=== PATIENT | male | born 1965 | race African-American/Black ===

== ENCOUNTER 2025-03-17 10:07 | Outpatient (REF) | payer OTHER, SELFPAY ==
--- NOTE | 2025-03-17 10:12 | EMG_ITS ---
Chief complaint: pain in wrists Referred by: KIKE Ortega Procedure done: NCS and EMG of bilateral upper extremities Bilateral median and ulnar motor studies were performed, median and ulnar mixed sensory studies were performed and radial sensory studies were performed. EMG was performed. Findings: Median motor distal latencies were moderately prolonged. Similar pattern was noted with median mixed sensory study especially on the left with slowing of conduction velocity. Ulnar study revealed mild slowing across elbow. Impression: 1. 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
--- OUTSIDE RECORDS SUMMARY | 2025-03-17 12:14 | XMS_ITS | Continuity of Care Document ---
Author Organization [facility], Main Office Address [address] [place] [address] Care Team Providers Care Roll Up Machine Operator Name Role Phone SUNNY AUGUSTIN Space Systems Operations Manager [phone] MISHEL PLATA Back End Engineer JOVITA DURBIN, AMANDA Sleep Medicine JOURDAN PRUITT Primary Care Provider Unavailabl e Assessment No assessment recorded. Plan of Treatment Reminders Order Date Submit Date Provider Last Modified By Organization Details Last Modified Time Details Appointments None recorded. Lab cobalamin and folate panel, serum 2024 025 RAHAT [facility] (Centralized Electronic Ordering - All Locations), Patient Can Go To The Location Of Their Choice, 06:07:45 CMP, serum or plasma 2024 025 RAHAT [facility], [address], [place], [address], 20:59:04 TSH + free T4, serum 2024 025 RAHAT [facility] (Centralized Electronic Ordering - All Locations), Patient Can Go To The Location Of Their Choice, [id number] 06:07:44 lipid panel, serum 2024 025 RAHAT [facility], [address], [place], [address], 20:59:05 CBC w/ auto diff 2024 025 RAHAT [facility] (Centralized Electronic Ordering - All Locations), Patient Can Go To The Location Of Their Choice, [id number] 06:07:45 HbA1c (hemoglobin A1c), blood 2024 RAHAT [facility], [address], [address], [place], [address], 20:59:06 PSA, serum or plasma 2024 RAHAT [facility], [address], [place], [address], 20:59:05 Referral benefits director referral - bilateral hearing loss. 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 thumb and index affected. 2024 emili [facility] (Imaging), [address] [place], [address], 14:29:40 Surgeries None recorded. Imaging None recorded. Medication Orders sildenafil 100 mg tablet 2024 DICKENS [id number], [address] [place], [address], 10:15:00 Patient TargetsNo targets recorded. Patient Instructions Encounter Date Encounter Id Patient Instructions Last Modified By Organization Details Last Modified Time 02/13/2025 [id number] sleep apnea: car e instructions Not available 02/13/2025 10:14:58 bunion removal: before your surgery Not available 02/13/2025 10:14:58 bunions: care instructions Not available 02/13/2025 10:14:58 Reason for Referral Back End Engineer Referral for Buni on bilateral bunions Referring Physician: Jourdan Pruitt [facility], Encounter Date: 02/13/2025 Transactional Attorney Referral for Hea ring difficulty bilateral hearing loss. last seen in 2019 Referring Physician: Jourdan Pruitt [facility], Encounter Date: 02/13/2025 Results Created Date Observation Date Name Description Value Unit Range Abnormal Flag Note LastModifiedBy Organization Detail LastModifiedTime 02/14/2002/14/2025 TSH+F REE T4 TSH 1.360 uIU/m L 0.450- 4.500 normal Not Available [facility] ([facility]) [address] [place], [address], 02/14/2025 06:07:44 02/14/2002/14/2025 TSH+F REE T4 T4,free(dire ct) 1.18 NG/dL 0.82-1 .77 normal Not Available [facility] ([facility]) [address] [place], [address], 02/14/2025 06:07:44 02/14/2002/13/2025 CBC WITH DIFFE RENTI AL/PL ATELE T WBC 4.7 x10e3 /uL 3.4-10 .8 normal Not Available [facility] ([facility]) [address] [place], [address], 02/14/2025 06:07:45 02/14/2002/13/2025 CBC WITH DIFFE RENTI AL/PL ATELE T RBC 4.56 x10e6 /uL 4.14-5 .80 normal Not Available [facility] ([facility]) [address] [place], [address], 02/14/2025 06:07:45 02/14/2002/13/2025 CBC WITH DIFFE RENTI AL/PL ATELE T hemoglobin 13.7 g/dL 13.0-1 7.7 normal Not Available [facility] ([facility]) [address] [place], [address], 02/14/2025 06:07:45 02/14/2002/13/2025 CBC WITH DIFFE RENTI AL/PL ATELE T hematocrit 42.1 % 37.5-5 1.0 normal Not Available [facility] ([facility]) [address] [place], [address], 02/14/2025 06:07:45 02/14/2002/13/2025 CBC WITH DIFFE RENTI AL/PL ATELE T MCV 92 fL 79-97 normal Not Available [facility] ([facility]) [address] [place], [address], 02/14/2025 06:07:45 02/14/2002/13/2025 CBC WITH DIFFE RENTI AL/PL ATELE T MCH 30.0 pg 26.6-3 3.0 normal Not Available [facility] ([facility]) [address] [place], [address], 02/14/2025 06:07:45 02/14/2002/13/2025 CBC WITH DIFFE RENTI AL/PL ATELE T MCHC 32.5 g/dL 31.5-3 5.7 normal Not Available [facility] ([facility]) [address] [place], [address], 02/14/2025 06:07:45 02/14/2002/13/2025 CBC WITH DIFFE RENTI AL/PL ATELE T RDW 12.5 % 11.6-1 5.4 Not Available [facility] ([facility]) [address] [place], [address], 02/14/2025 06:07:45 02/14/2002/13/2025 CBC WITH DIFFE RENTI AL/PL ATELE T platelets 189 x10e3 /uL 150-45 0 normal Not Available [facility] ([facility]) [address] [facility], [place], [address], 02/14/2025 06:07:45 02/14/2002/13/2025 CBC WITH DIFFE RENTI AL/PL ATELE T neutrophils 55 % not estab. normal Not Available [facility] ([facility]) [address] [facility], [place], [address], 02/14/2025 06:07:45 02/14/2002/13/2025 CBC WITH DIFFE RENTI AL/PL ATELE T lymphs 34 % not estab. normal Not Available [facility] ([facility]) [address] [facility], [place], [address], 02/14/2025 06:07:45 02/14/2002/13/2025 CBC WITH DIFFE RENTI AL/PL ATELE T monocytes 5 % not estab. normal Not Available [facility] ([facility]) [address] [place], [address], 02/14/2025 06:07:45 02/14/2002/13/2025 CBC WITH DIFFE RENTI AL/PL ATELE T eos 5 % not estab. normal Not Available [facility] ([facility]) [address] [facility], [place], [address], 02/14/2025 06:07:45 02/14/2002/13/2025 CBC WITH DIFFE RENTI AL/PL ATELE T basos 1 % not estab. normal Not Available [facility] ([facility]) [address] [facility], [place], [address], 02/14/2025 06:07:45 02/14/2002/13/2025 CBC WITH DIFFE RENTI AL/PL ATELE T immature cells FIRE OFFICER Not Available [facility] ([facility]) [address] [facility], [place], [address], 02/14/2025 06:07:45 02/14/2002/13/2025 CBC WITH DIFFE RENTI AL/PL ATELE T neutrophils (absolute) 2.5 x10e3 /uL 1.4-7. 0 normal Not Available [facility] ([facility]) [address] [place], [address], 02/14/2025 06:07:45 02/14/2002/13/2025 CBC WITH DIFFE RENTI AL/PL ATELE T lymphs (absolute) 1.6 x10e3 /uL 0.7-3. 1 normal Not Available [facility] ([facility]) [address] [place], [address], 02/14/2025 06:07:45 02/14/2002/13/2025 CBC WITH DIFFE RENTI AL/PL ATELE T monocytes(ab solute) 0.3 x10e3 /uL 0.1-0. 9 normal Not Available [facility] ([facility]) [address] [place], [address], 02/14/2025 06:07:45 02/14/2002/13/2025 CBC WITH DIFFE RENTI AL/PL ATELE T eos (absolute) 0.2 x10e3 /uL 0.0-0. 4 normal Not Available [facility] ([facility]) [address] [place], [address], 02/14/2025 06:07:45 02/14/2002/13/2025 CBC WITH DIFFE RENTI AL/PL ATELE T baso (absolute) 0.0 x10e3 /uL 0.0-0. 2 normal Not Available [facility] ([facility]) [address] [place], [address], 02/14/2025 06:07:45 02/14/2002/13/2025 CBC WITH DIFFE RENTI AL/PL ATELE T immature granulocytes 0 % not estab. Not Available [facility] ([facility]) [address] [facility], [place], [address], 02/14/2025 06:07:45 02/14/2002/13/2025 CBC WITH DIFFE RENTI AL/PL ATELE T immature grans (abs) 0.0 x10e3 /uL 0.0-0. 1 Not Available [facility] ([facility]) [address] [facility], [place], [address], 02/14/2025 06:07:45 02/14/2002/13/2025 CBC WITH DIFFE RENTI AL/PL ATELE T NRBC FIRE OFFICER Not Available [facility] ([facility]) [address] [facility], [place], [address], 02/14/2025 06:07:45 02/14/2002/13/2025 CBC WITH DIFFE RENTI AL/PL ATELE T hematology comments: FIRE OFFICER Not Available [facility] ([facility]) [address] [facility], [place], [address], 02/14/2025 06:07:45 02/14/2002/14/2025 VITAM IN B12 AND FOLAT E vitamin B12 624 pg/mL 232-12 45 normal Not Available [facility] ([facility]) [address] [facility], [place], [address], 02/14/2025 06:07:45 02/14/2002/14/2025 VITAM IN B12 AND FOLAT E folate (folic acid), serum >20.0 NG/mL >3.0 A serum folat e sukhi ntrat ion of less than 3.1 ng/mL is consi dered to repre sent clini daniel defic iency . Not Available [facility] ([facility]) [address] [facility], [place], [address], 02/14/2025 06:07:45 02/14/2002/14/2025 CMP14 (REFL EX HGB A1C) glucose 102 mg/dL 70-99 above high normal Not Available [facility] ([facility]) [address] [place], [address], 02/20/2025 20:59:03 02/14/2002/14/2025 CMP14 (REFL EX HGB A1C) BUN 13 mg/dL 6-24 normal Not Available [facility] ([facility]) [address] [place], [address], 02/20/2025 20:59:03 02/14/2002/14/2025 CMP14 (REFL EX HGB A1C) creatinine 1.11 mg/dL 0.76-1 .27 normal Not Available [facility] ([facility]) [address] [place], [address], 02/20/2025 20:59:03 02/14/2002/14/2025 CMP14 (REFL EX HGB A1C) eGFR 77 mL/mi n/1.7 3 >59 normal Not Available [facility] ([facility]) [address] [place], [address], 02/20/2025 20:59:03 02/14/2002/14/2025 CMP14 (REFL EX HGB A1C) BUN/creatini ne ratio 12 9-20 normal Not Available [facility] ([facility]) [address] [place], [address], 02/20/2025 20:59:03 02/14/2002/14/2025 CMP14 (REFL EX HGB A1C) sodium 139 mmol/ L 134-14 4 normal Not Available [facility] ([facility]) [address] [place], [address], 02/20/2025 20:59:03 02/14/2002/14/2025 CMP14 (REFL EX HGB A1C) potassium 3.8 mmol/ L 3.5-5. 2 normal Not Available [facility] ([facility]) [address] [place], [address], 02/20/2025 20:59:03 02/14/2002/14/2025 CMP14 (REFL EX HGB A1C) chloride 103 mmol/ L 96-106 normal Not Available [facility] ([facility]) [address] [place], [address], 02/20/2025 20:59:03 02/14/2002/14/2025 CMP14 (REFL EX HGB A1C) carbon dioxide, total 20 mmol/ L 20-29 normal Not Available [facility] ([facility]) [address] [place], [address], 02/20/2025 20:59:03 02/14/2002/14/2025 CMP14 (REFL EX HGB A1C) calcium 9.1 mg/dL 8.7-10 .2 normal Not Available [facility] ([facility]) [address] [place], [address], 02/20/2025 20:59:03 02/14/2002/14/2025 CMP14 (REFL EX HGB A1C) protein, total 7.2 g/dL 6.0-8. 5 normal Not Available [facility] ([facility]) [address] [place], [address], 02/20/2025 20:59:03 02/14/2002/14/2025 CMP14 (REFL EX HGB A1C) albumin 4.4 g/dL 3.8-4. 9 normal Not Available [facility] ([facility]) [address] [place], [address], 02/20/2025 20:59:03 02/14/2002/14/2025 CMP14 (REFL EX HGB A1C) globulin, total 2.8 g/dL 1.5-4. 5 Not Available [facility] ([facility]) [address] [place], [address], 02/20/2025 20:59:03 02/14/2002/14/2025 CMP14 (REFL EX HGB A1C) bilirubin, total 0.4 mg/dL 0.0-1. 2 normal Not Available [facility] ([facility]) [address] [place], [address], 02/20/2025 20:59:03 02/14/2002/14/2025 CMP14 (REFL EX HGB A1C) alkaline phosphatase 44 IU/L 47-123 below low normal Not Available [facility] ([facility]) [address] [place], [address], 02/20/2025 20:59:03 02/14/2002/14/2025 CMP14 (REFL EX HGB A1C) AST (SGOT) 23 IU/L 0-40 normal Not Available [facility] ([facility]) [address] [place], [address], 02/20/2025 20:59:03 02/14/2002/14/2025 CMP14 (REFL EX HGB A1C) ALT (SGPT) 20 IU/L 0-44 normal Not Available [facility] ([facility]) [address] [place], [address], 02/20/2025 20:59:03 02/14/2002/14/2025 LIPID PANEL cholesterol, total 211 mg/dL 100-19 9 above high normal Not Available [facility] ([facility]) [address] [place], [address], 02/20/2025 20:59:05 02/14/2002/14/2025 LIPID PANEL triglyceride s 66 mg/dL 0-149 normal Not Available [facility] ([facility]) [address] [place], [address], 02/20/2025 20:59:05 02/14/2002/14/2025 LIPID PANEL HDL cholesterol 66 mg/dL >39 normal Not Available [facility] ([facility]) [address] [facility], [place], [address], 02/20/2025 20:59:05 02/14/2002/14/2025 LIPID PANEL VLDL cholesterol daniel 12 mg/dL 5-40 Not Available [facility] ([facility]) [address] [facility], [place], [address], 02/20/2025 20:59:05 02/14/2002/14/2025 LIPID PANEL LDL chol calc ([facility]) 133 mg/dL 0-99 above high normal Not Available [facility] ([facility]) [address] [facility], [place], [address], 02/20/2025 20:59:05 02/14/2002/14/2025 LIPID PANEL LDL calc comment: FIRE OFFICER Not Available [facility] ([facility]) [address] [facility], [place], [address], 02/20/2025 20:59:05 02/14/2002/20/2025 PROST ATE SPECI FIC ANTIG EN prostate specific antigen 0.515 NG/mL This PSA resul t was deter mined using the Beckm an chemi lumin ometr ic immun oassa y and value s obtai dion canno t be evalu ated inter brown eably with diffe rent assay metho ds or kits. This PSA resul t alone canno t be inter prete d as absol sarahy evide nce of the prese nce or absen ce of disea se. Refer ence Range : >=40y : 97% of contr ols are <4.0. PSA level s have been repor maksim to corre late with prost ate size. Value s >4.0 are commo n in patie nts with prost atic hyper plasi a. Not Available [facility] [address], [place], [address], 02/20/2025 20:59:05 02/14/20 25 02/13/2025 HEMOG LOBIN A1C hemoglobin A1C 5.9 % 4.8-5. 6 above high normal Predi abete s: 5.7 - 6.4 Diabe any: >6.4 Glyce yanely contr ol for adult s with diabe any: <7.0 Not Available [facility] ([facility]) [address] [facility], [place], [address], 02/20/2025 20:59:06 Result Notes None recorded. 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 Not Available [facility] 2 13:16:02 Insomnia 231738014 Active Not Available [facility] 2 13:16:02 Carpal tunnel syndrome 70608010 Active Not Available [facility] 2 13:16:02 Acute sinusiti s 89547061 Completed 200811/11/2013 RECORDED 08/15/19 09 9:27AM BY AURELIA GOLDEN MA, ANNOTATI ON/ADDEN DUM Not Available [facility] 4 14:40:47 Cough 05662833 Completed 200811/11/2013 RECORDED 08/15/19 09 9:27AM BY AURELIA GOLDEN MA, ANNOTATI ON/ADDEN DUM Not Available [facility] 4 14:40:48 Acute sinusiti s 48983236 Completed 200812/01/2013 RECORDED 08/15/19 09 9:27AM BY AURELIA GOLDEN MA, EMILIEATI ON/ADDEN DUM Not Available [facility] 4 06:48:47 Cough 40419190 Completed 200812/01/2013 RECORDED 08/15/19 09 9:27AM BY AURELIA GOLDEN MA, EMILIEATI ON/ADDEN DUM Not Available [facility] 4 06:48:47 General examinat ion of patient Completed 200911/11/2013 RECORDED 01/07/20 10 12:06PM BY CONNIE TELLES, ANNOTATI ON/ADDEN DUM Not Available [facility] 4 14:40:48 Shoulder joint pain 421268619 Completed 200911/11/2013 RECORDED 01/07/20 10 12:06PM BY CONNIE TELLES, ANNOTATI ON/ADDEN DUM Not Available [facility] 4 14:40:48 Sprains and strains of joints and adjacent muscles Completed 200911/11/2013 RECORDED 01/07/20 10 12:06PM BY CONNIE TELLES, ANNOTATI ON/ADDEN DUM Not Available [facility] 4 14:40:48 General examinat ion of patient Completed 200912/01/2013 RECORDED 01/07/20 10 12:06PM BY CONNIE TELLES, ANNOTATI ON/ADDEN DUM Not Available [facility] 4 06:48:47 Shoulder joint pain 304873926 Completed 200912/01/2013 RECORDED 01/07/20 10 12:06PM BY CONNIE TELLES, ANNOTATI ON/ADDEN DUM Not Available [facility] 4 06:48:47 Sprains and strains of joints and adjacent muscles Completed 200912/01/2013 RECORDED 01/07/20 10 12:06PM BY CONNIE TELLES, ANNOTATI ON/ADDEN DUM Not Available [facility] 4 06:48:47 Administ ration of bacteria l and viral vaccine Completed 200911/11/2013 RECORDED 01/14/20 10 10:36AM BY CONNIE BAH, OFFICE VISIT Not Available [facility] 4 14:40:48 Administ ration of bacteria l and viral vaccine Completed 200912/01/2013 RECORDED 01/14/20 10 10:36AM BY CONNIE BAH, OFFICE VISIT Not Available [facility] 4 06:48:47 Hyperlip idemia 72353333 Completed 201211/11/2013 RECORDED 05/13/19 13 8:32AM BY AURELIA GOLDEN MA, ANNOTATI ON/ADDEN DUM Megan neumann MA [facility] 7 15:18:54 Digestiv e symptom 620526011 Completed 201211/11/2013 RECORDED 07/02/19 13 10:47AM BY STEVEN ESCALANTE MA, ANNOTATI ON/ADDEN DUM Not Available [facility] 4 14:40:48 Screenin g for malignan t neoplasm of colon Completed 201211/11/2013 RECORDED 07/02/19 13 10:47AM BY STEVEN ESCALANTE MA, ANNOTATI ON/ADDEN DUM Not Available [facility] 4 14:40:48 Digestiv e symptom 994273884 Completed 201212/01/2013 RECORDED 07/02/19 13 10:47AM BY STEVEN ESCALANTE MA, ANNOTATI ON/ADDEN DUM Not Available [facility] 4 06:48:47 Screenin g for malignan t neoplasm of colon Completed 201212/01/2013 RECORDED 07/02/19 13 10:47AM BY STEVEN ESCALANTE MA, ANNOTATI ON/ADDEN DUM Not Available [facility] 4 06:48:47 Patient status finding [id number] Completed 201211/11/2013 RECORDED 11/30/19 13 3:10PM BY STEVEN ESCALANTE MA, ANNOTATI ON/ADDEN DUM Not Available [facility] 4 14:40:48 Adult health examinat ion Completed 201211/11/2013 RECORDED 11/30/19 13 3:10PM BY STEVEN ESCALANTE MA, ANNOTATI ON/ADDEN DUM Not Available [facility] 4 14:40:48 Onychomy cosis due to dermatop hyte 482494008 Completed 201211/11/2013 RECORDED 11/30/19 13 3:10PM BY STEVEN ESCALANTE MA, ANNOTATI ON/ADDEN DUM Not Available [facility] 4 14:40:48 Patient status finding [id number] Completed 201212/01/2013 RECORDED 11/30/19 13 3:10PM BY STEVEN ESCALANTE MA, ANNOTATI ON/ADDEN DUM Not Available [facility] 4 06:48:47 Adult health examinat ion Completed 201212/01/2013 RECORDED 11/30/19 13 3:10PM BY STEVEN ESCALANTE MA, ANNOTATI ON/ADDEN DUM Not Available [facility] 4 06:48:47 Onychomy cosis due to dermatop hyte 405850742 Completed 201212/01/2013 RECORDED 11/30/19 13 3:10PM BY STEVEN ESCALANTE MA, ANNOTATI ON/ADDEN DUM Not Available [facility] 4 06:48:47 Cellulit is 732992356 Completed 201308/18/2014 RECORDED 08/14/19 14 8:46AM BY RAJNI VINES MA, OFFICE VISIT Robin neumann [facility] 5 20:10:44 Backache 858367763 Completed 201310/12/2014 RECORDED 08/14/19 14 8:50AM BY KIT ULRICH PA-C, OFFICE VISIT CONNIE Gerard [facility] 5 13:35:04 Tobacco dependen ce syndrome 33572218 Active 2013 Not Available [facility] 2 13:16:02 Urinary tract obstruct ion 3676600 Active 2013 Not Available [facility] 2 13:16:02 Benign prostati c hyperpla heaven 267644214 Active 2013 Not Available [facility] 2 13:16:02 Lower urinary tract symptoms 970553359 Completed 201310/12/2014 IMPRESSI ON: MAY BE MILD AND FACTOR; RECORDED 08/14/19 14 8:46AM BY RAJNI VINES MA, OFFICE VISIT CONNIE Gerard [facility] 5 13:35:04 Impotenc e of organic origin Active 2013 Not Available [facility] 2 13:16:02 Hyperlip idemia 24825433 Active 2013 Not Available [facility] 2 13:16:02 Stephanie palm 41670014 Completed 201308/18/2014 RECORDED 08/14/19 14 8:46AM BY RAJNI VINES MA, OFFICE VISIT Robin neumann [facility] 5 20:10:44 Patient status finding [id number] Completed 201308/18/2014 RECORDED 08/14/19 14 8:46AM BY RAJNI VINES MA, OFFICE VISIT Robin neumann, [facility] 5 20:10:44 Major depressi ve disorder 365450861 Active 2020 Not Available [facility] 2 13:16:02 COVID-19 545065691 Completed 202001/27/2021 Removal Reason: Problem marked historic al by user [email or web address] from the COVID-19 watch flag Josue Sánchez, [facility] [address] [address], [place], [address] , [facility] 1 10:22:30 Foot pain 10279243 Active 2021 Josue Sánchez, [facility] [address] [address], [place], [address] , [facility] 2 10:48:15 Primary erectile dysfunct ion 245294185 Active 2021 Aaron Banks MA null, [facility] 2 14:09:30 Impaired fasting glycemia 916251724 Active 2021 Josue Sánchez, [facility] [address] [facility] [address], [place], [address] , [facility] 2 10:49:54 Fatigue 35384505 Active 2021 Josue Sánchez [facility] [address], [place], [address] , [facility] 2 10:49:54 Carpal tunnel syndrome 93661382 Active 2021 Josue Sánchez, [facility] [address] [facility] [address], [place], [address] , [facility] 2 10:49:54 Erectile dysfunct ion 287349546 Active 2021 Josue Sánchez, [facility] [address] [place] [address], [place], [address] , [facility] 2 10:57:44 Lumbar radiculo vincent 728016988 Active 2021 Josue Sánchez, [facility] [address] [place] [address], [place], [address] , [facility] 2 10:58:27 Elevated blood-pr essure reading without diagnosi s of hyperten otto 979459361 Active 2021 Josue Sánchez, [facility] [address] [place] [address], [place], [address] , [facility] 2 11:04:53 Apnea 1123137 Active 2021 Josue Sánchez, [facility] [address] [address], [place], [address] , [facility] 2 11:48:00 Paresthe heaven 31820146 Active 2022 Josue Sánchez, [facility] [address] [address], [place], [address] , [facility] 3 09:49:39 Snoring 31009743 Active 2022 Josue Sánchez [facility] [address] [address], [place], [address] , [facility] 3 09:49:39 Neck pain 31442177 Active 2022 Josue Sánchez, [facility] [address] [facility] [address], [place], [address] , [facility] 3 09:49:39 Thoracic back pain 325948108 Active 2022 Josue Sánchez [facility] [address] [facility] [address], [place], [address] , [facility] 3 09:56:22 Obstruct jomar sleep apnea syndrome 94199069 Active 2022 Josue Sánchez [facility] [address] [facility] [address], [place], [address] , [facility] 3 13:17:01 Problem Notes None recorded. Procedures Surgical History Date Name Laterality Status Provider Name and Address Organization Details Recorded Time 7 Unlisted procedure shoulder completed Megan Landry [facility] 01/08/2017 13:05:05 1 Colonoscopy completed [facility] 02/05/2020 14:02:58 1 biopsy completed Maryshady Shin [facility] 02/05/2020 13:33:46 3 Vasectomy completed Aurelia farooq [facility] 05/18/2020 15:46:24 arthroscopy of shoulder completed Aurelia farooq [facility] 02/08/2023 09:21:32 Imaging Results None recorded. Procedure Notes None recorded. Medical Equipment None Reported. Allergies Allergen ID Allergen Name Allergen Category Reaction Reaction Severity Criticality Documentation Date Start Date Code Code System Note Provider Name and Address Organization Details Recorded Time 29102 No known allergy (situatio n) Not available Not available Not available Not available 11/04/20132008 32471 6003 SNOMED COMME NT: RECOR DED 08/14 9:27A M BY BA JAUREGUI MA, OFFIC E VISIT ; Not Available [facility] 4 13:27:10 No known drug allergies Medications Name Sig Start Date Stop Date Status Note LastModified by Organization Details LastModified Time Prescript ion - Prior Authoriza tion Request active Not Available Not Available Not Available cyclobenz aprine 10 mg tablet Take 1 tablet 3 times a day by oral route as directed for 10 days. 02/08 completed Not Available Not Available Not Available trazodone 50 mg tablet Take 1 tablet as needed by oral route at bedtime for 90 days. active Not Available Not Available No t Available azithromy katja 250 mg tablet TAKE 2 TABLETS (500 MG) BY ORAL ROUTE ONCE DAILY FOR 1 DAY THEN 1 TABLET (250 MG) BY ORAL ROUTE ONCE DAILY FOR 4 DAYS 01/27 completed Not Available Not Available Not Available citalopra m 10 mg tablet Take 3 tablets every day by oral route for 90 days. 12/22 completed Not Available Not Available Not Available Viagra 50 mg tablet 1 TABLET BY MOUTHY NEEDED 12/22 completed Not Available Not Available Not Available penicilli n V potassium 500 mg tablet 01/05 completed Not Available Not Available Not Available morphine ER 30 mg tablet,ex tended release 01/08 completed Not Available Not Available Not Available sulfameth oxazole 800 mg-trimet hoprim 160 mg tablet TWO TIMES DAILY 12/09 completed RECORDED 06/28/19 14 10:21AM BY AARON ROJAS MD, MEDICATI ON AUTO-DUSTIN CTIVATIO N; Not Available Not Available Not Available sildenafi l 100 mg tablet TAKE 1 TABLET BY MOUTH EVERY DAY NEEDED 2024 active PA APPROVED Not Available Not Available Not Available citalopra m 20 mg tablet Take 1 tablet every day by oral route for 30 days. 12/22 completed Not Available Not Available Not Available cephalexi n 500 mg capsule 01/17 completed Not Available Not Available Not Available prednison e 50 mg tablet DAILY active Not Available Not Available Not Available gabapenti n 300 mg capsule TAKE 1 CAPSULE BY MOUTH TWICE DAILY 02/02 completed Not Available Not Available Not Available naproxen 500 mg tablet TAKE 1 TABLET BY MOUTH TWICE A DAY active Not Available Not Available No t Available diazepam 5 mg tablet 01/08 completed Not Available Not Available Not Available amoxicill in 875 mg-potass ium clavulana te 125 mg tablet TWO TIMES DAILY 06/01 completed RECORDED 08/15/19 09 9:27AM BY BRIANA Frias NP, MEDICATI ON AUTO-DUSTIN CTIVATIO N; Not Available Not Available Not Available oxycodone 5 mg tablet 01/08 completed Not Available Not Available Not Available codeine-g uaifenesi n oral syrup Q 4 HOURS PRN 05/30 completed RECORDED 08/15/19 09 9:27AM BY BRIANA Frias NP, MEDICATI ON AUTO-DUSTIN CTIVATIO N; Not Available Not Available Not Available tadalafil 20 mg tablet Take by oral route for 10 days. active Not Available Not Available No t Available Vicodin Q 6HR/PRN 01/02 completed RECORDED 03/01/20 07 11:00AM BY FLASH CARNEY, HERSONATI ON AUTO-DUSTIN CTIVATIO N; Not Available Not Available Not Available Fish Oil QD 06/02 completed RECORDED 06/02/19 12 1:01PM BY EVERETTE PEREZ ON/ANGELY BERUMEN; Not Available Not Available Not Available sodium fluoride 1.1 % dental paste BRUSH TWICE DAILY. NO EATING/D RINKING FOR [address] A SMALL AMOUNT OF PASTE ON FLOSS AND FLOSS BACK TEETH 02/08 completed Not Available Not Available Not Available Vitals Date Recorded Body height Body mass index (BMI) Body weight Heart rate Oxygen saturation Body temperature Systolic And Diastolic Provider Name and Address Organization Details Last Updated DateTime 5 172.72 cm 38 kg/m2 202801. 09 g 66 /min 97 % 97.4 [degF] 108/60 mm[Hg] Aurelia hannon [facility] 5 09:58:31 Social History Question Answer Notes LastModified by Organizat ion Details LastModified Time Tobacco Smoking Status [facility] 15:41:51 Do You Have An Advance Directive? Yes [facility] Information not available 02/02/2022 Is Blood Transfusion Acceptable In An Emergency? Yes [email or web address] Information not available 12/23/2015 What Is Your Level Of Caffeine Consumption? Occasional Coffee And Mushroom Coffee Information not available 02/13/2025 How Much Tobacco Do You Chew? None Information not available 12/23/2015 What Type Of Diet Are You Following? REGULAR Information not available 10/12/2014 Which Illicit Or Recreational Drugs Have You Used? Marijuana Occasional Information not available 02/08/2023 Live Alone Or With Others? With Others (Kaci) And 1 Child Information not available 02/02/2022 Do You Take Precautions To Prevent Distracted Driving? Yes Information not available 12/23/2015 How Often Do You Need To Have Someone Help You When You Read Instructions, Pamphlets, Or Other Written Material From Your Doctor Or Pharmacy? Never Information not available 12/23/2015 Have You Served In The ? No [email or web address] Information not available 01/11/2018 Have You Or Anyone In Your Household Had Any Of The Following Symptoms In The Last 14 Days: Sore Throat, Cough, Chills, Body Aches For Unknown Reasons, Shortness Of Breath For Unknown Reasons, Loss Of Smell, Loss Of Taste, Fever At Or Greater Than 100 Degrees Fahrenheit? No [email or web address] Information not available 01/27/2020 Are You Or Anyone In Your Household A Health Care Provider Or Emergency Responder? No [email or web address] Information not available 01/27/2020 To The Best Of Your Knowledge Have You Been In Close Proximity To Any Individual Who Tested Positive For COVID-19? Yes Information not available 02/02/2022 Have You Recently Traveled To A COVID-19 High Risk Area Or Gathering In The Last 10 Days? No Information not available 05/18/2020 What Was The Date Of Your Most Recent Tobacco Screening? 02/13/2025 Information not available 02/13/2025 How Many Children Do You Have? 2 Information not available 10/12/2014 Do You Use Protection During Sex? No Information not available 12/23/2015 Do You Use Your Seat Belt Or Car Seat Routinely? Yes [email or web address] Information not available 01/27/2021 Seat Belts Used Routinely Yes Information not available 02/02/2022 Are You Sexually Active? Yes Kaci Information not available 02/08/2023 Smoke Alarm In Home Yes Information not available 02/02/2022 Do You Have Smoke And Carbon Monoxide Detectors In Your Home? Yes [email or web address] Information not available 01/27/2021 Are You Passively Exposed To Smoke? Yes Information not available 02/02/2022 How Much Tobacco Do You Smoke? No Information not available 05/18/2020 Do You Use Sunscreen Routinely? No Information not available 12/23/2015 Sex: Unknown Functional Status Question Answer Note LastModified by Organizat ion Details LastModified Time Do you use any illicit or recreational drugs? No Information not available 02/13/2025 Do you or have you ever used any other forms of tobacco or nicotine? No Information not available 02/02/2022 What is your level of alcohol consumption? Occasional Information not available 02/08/2023 Do you or have you ever used smokeless tobacco? Never used smokeless tobacco [email or web address] Information not available 01/27/2020 Are you currently employed? Yes Information not available 10/12/2014 Are you able to walk independently without assistance or assistive devices? [email or web address] Information not available 02/02/2022 Are you able to care for yourself independently? Yes Information not available 10/12/2014 What is your occupation? [employer] Information not available 02/02/2022 Do you or have you ever used e-cigarettes or vape? Never used electronic cigarettes Information not available 02/02/2022 What is your exercise level? Occasional Information not available 01/27/2021 Mental Status None recorded. Family History Relationship Description Onset Age of this Age Resolved Age Notes LastModified by Organization Details LastModified Time Mother Well adult 66 Not available 02/02/2022 10:35:07 Father Alcoholism 65/ unknow n Not available 02/02/2022 10:35:07 Father Harmful pattern of use of alcohol Not available 2020 09:49:14 Unspecified Relation Harmful pattern of use of alcohol [email or web address] Not available 2021 10:35:07 Unspecified Relation Alzheimer's disease Not available 2020 09:49:15 Unspecified Relation Substance abuse Not available 2020 09:49:15 Unspecified Relation Multiple sclerosis matern al great uncle [email or web address] Not available 02/13/2025 10:01:13 Paternal Uncle Alzheimer's disease Not available 2020 09:49:15 Paternal Uncle Dementia [email or web address] Not available 01/28/20 09:49:15 Maternal Aunt Multiple sclerosis [email or web address] s Not available 02/13/2025 10:01:13 Medical History Condition Response Coronary Artery Disease N Other Y Gout N Kidney Stones N Blood Diseases N Hyperthyroidism N Breast Cancer N mrsa exposure N Hypothyroidism N Lung Disease N COPD N Depression Y Developmental or Behavioral Disorders N Defects or Inherited Disease N Breast Problem N Anesthesia Complications N Headaches/Migraines N Anxiety Disorder N Varicose Veins N Muscle, Joint, or Bone Problems Y Obesity Y Vision or Eye Problems N Arthritis Y Head Injury/Concussion N Infertility N Polyps N Mental Disorder N Congenital Anomalies N Acid Reflux (GERD) N Cancer N Stroke N ADHD N Endometriosis N High Cholesterol Y Liver Disease N Fibromyalgia N Headaches N Kidney Disease N Heart Problems N Ear or Hearing Problems Y Hospitalizations N Thyroid Problems N GI Problems N Developmental Delay N Acne Y Skin Problems N Eating Disorder Y Anemia N Constipation N Bladder Problems N Mental Illness N Ovarian Cancer N Diabetes N Bedwetting N Blood Transfusions N Seizures/Epilepsy N Heart Problems/Murmur N Tuberculosis N AIDS/HIV N Congestive Heart Failure (CHF) N Eczema N Diverticulitis N Abuse/Domestic Violence N Asthma N Allergies Y Reflux/GERD N Hepatitis N Heart Disease N Pulmonary Embolism N Hypertension N Chicken Pox N Autism Spectrum Disorder (ASD) N Osteoporosis N Immunizations Vaccine Type Date Status Note Provider Name and Address Organization Details Recorded Time Influenza, split virus, trivalent, PF 02/14/20 25 completed CONNIE Sunshine, [facility] 02/13/2025 12:40:54 COVID-19, mRNA, LNP-S, PF, 30 mcg/0.3 mL dose 08/15/19 21 completed Nae William null, [facility] 05/04/2021 15:57:22 COVID-19, mRNA, LNP-S, PF, 30 mcg/0.3 mL dose 09/05/19 21 completed Nae William null, [facility] 05/04/2021 15:57:22 COVID-19, mRNA, LNP-S, PF, 30 mcg/0.3 mL dose 04/26/19 22 completed CONNIE Morocho, [facility] 05/17/2022 10:02:18 COVID-19, mRNA, LNP-S, bivalent, PF, 30 mcg/0.3 mL dose 02/21/20 22 completed CONNIE Morocho, [facility] 05/17/2022 10:11:26 Influenza, MDCK, quadrivalent, PF 02/21/20 22 completed CONNIE Morocho, [facility] 05/17/2022 10:11:26 Influenza, split virus, quadrivalent, PF 01/09/20 17 cancelled patient objection Not Available [email or web address] 05/10/2019 02:22:11 Tdap 01/27/20 20 completed RODNEY Iverson [address] [place] [address], [phone], [facility] 01/27/2020 16:04:11 Influenza, split virus, quadrivalent, PF 02/09/20 23 completed RODNEY Iverson [address] [place] [address], [phone], [facility] 02/08/2023 10:12:56 Td (adult), 2 Lf tetanus toxoid, preservative free, adsorbed 12/18/19 01 completed Nae neumann, [facility] 05/04/2021 15:57:22 Tdap 01/14/20 10 completed Nae neumann CONNIE [facility] 05/04/2021 15:57:22 Past Encounters Encounter ID Performer Location Encounter Start Date Encounter Closed Date Diagnosis/Indication Diagnosis SNOMED-CT Code Diagnosis ICD10 Code Diagnosis IMO Codes Diagnosis Note [id number] Bro Dela Cruz MD Main Office [address] [facility] CONNIE SCHAEFER [id number] 02/13/2025 09:42:33 02/13/2025 10:37:18 Adult health examination 072791319 Z00.00 HM UTD, cologuard done in 2024- negative, will check PSA. Hyperlipidemia 59567767 E78.5 will recheck. Benign pro static hyperplasia 420725381 N40.1 Impaired f asting glycemia 658917122 R73.01 Obstructiv e sleep apnea syndrome 33544177 G47.33 sleep study confirmed but he has not tried CPAP, does not think he would wear mask. encouraged to consider alternate mask options and try CPAP Erectile dysfunction 860 929799 F52.21 refill provided. Needs infl uenza immunization 482628315 Z23 19 YEARS AND OLDER ONLY Bunion 777945188 M21.61 1 M21.[id number] Plata and was advised he needed prosthetic s, Dr Plata does not provide service. Will refer to Dr. Lares for bilateral bunions. 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 work-notic ed difficulty grasping heavy objects-in office +phalen test, R>L-will further evaluate with EMG for suspicion of carpal tunnel Hearing difficulty 28717 0000 H91.93 [id number] saw audiology in 2019>was told he had bilateral hearing loss-pt would like to get re-examine d for possible hearing aids Family his tory of Multiple sclerosis 113522011 Z82.0 [id number] Health Concerns Section Related Observation LastModified by Organization Detai ls LastModified Time None Recorded Concern Status LastModified by Organization Details LastModified Time None Recorded Payers Encounter Date Sequence Insurance Name Policy Number Policy Padilla Covered Member ID Padilla Member ID Guarantor Name 02/13/2025 1 MAYUR [id number] Niles Abraham [id number] Niles Abraham Notes Date Note Type Note Provider Name and Address Organization Details Recorded Time 02/13/2025 text/html ROS as noted in the HPI Niles is a 59yr old M who presents for his annual PE. Has some work related stress- work, home life, college. He does have sleep apnea per sleep study, will not use cpap so he cancelled it. Not sleeping great, takes trazodone on nights he really needs a good night's sleep. Walking 3.5-5miles per day. eats well during the day, taking supplements- AG1 powder, mushroom coffee, testosterone supplement, considering sea hong and ashwaghanda. Overeats at night- snacking- boredom. KIKE CRAIG [address] [address], [place], [phone], [facility] 02/13/2025 11:10:55
--- OUTSIDE RECORDS SUMMARY | 2025-03-17 12:15 | XMS_ITS | Data Portability ---
Author Organization [facility], Main Office Address [address] 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 Plan of Treatment Reminders Order Date Submit Date Provider Last Modified By Organization Details Last Modified Time Details Appointments None recor ded. Lab cobal peralta and folat e panel , serum 2024 RAHAT [facility] (Centralized Electronic Ordering - All Locations), Patient Can Go To The Location Of Their Choice, 06:07:45 CMP, serum or plasm a 2024 025 RAHAT [facility], [address], [address], [place], [place], [address], 20:59:04 TSH + free T4, serum 2024 025 RAHAT [facility] (Centralized Electronic Ordering - All Locations), Patient Can Go To The Location Of Their Choice, 06:07:44 lipid panel , serum 2024 025 RAHAT [facility], [address], [address], [place], [address], 20:59:05 CBC w/ auto diff 2024 025 RAHAT [facility] (Centralized Electronic Ordering - All Locations), Patient Can Go To The Location Of Their Choice, [id number] 5 06:07:45 HbA1c (hemo globi n A1c), blood 2024 025 RAHAT [facility], [address], [address], [place], [address], 5 20:59:06 PSA, serum or plasm a 2024 025 [facility]AT [facility], [address], [address], [place], [address], 20:59:05 CMP, serum or plasm a 2023 RAHAT [facility], [address], [address], [place], [address], 16:19:11 lipid panel , serum 2023 RAHAT [facility], [address], [address], [place], [address], 4 16:19:12 CBC w/ auto diff 2023 024 RAHAT [facility], [address], [address], [place], [address], 4 16:19:10 TSH, serum or plasm a 2023 RAHAT [facility], [address], [address], [place], [address], 4 16:19:13 testo stero ne, free + total , serum 2023 RAHAT [facility], [address], [address], [place], [address], 4 16:19:13 corti perry, am, serum 2023 024 RAHAT [facility], [address], [address], [place], [place], [address], 4 16:19:15 HbA1c (hemo globi n A1c), blood 2023 024 RAHAT [facility], [address], [address], [place], [place], [address], 4 16:19:15 nonin vasiv e color ectal cance r DNA + occul t blood scree antolin, QL, stool 2023 024 [place] [facility], [address], [address], [place], [address], 5 09:55:34 PSA, serum or plasm a 2023 024 RAHAT [facility], [address], [address], [place], [address], 4 16:19:14 CMP, serum or plasm a 2022 023 RAHAT [facility], [address], [address], [place], [address], 3 16:31:13 lipid panel , serum 2022 023 RAHAT [facility], [address], [address], [place], [address], 3 16:31:14 CBC w/ auto diff 2022 023 RA[facility]AT [facility], [address], [address], [place], [address], 3 16:03:49 TSH, serum or plasm a 2022 023 RA[facility]AT [facility], [address], [address], [place], [address], 3 16:35:35 HbA1c (hemo globi n A1c), blood 2022 023 RAHAT [facility], [address], [address], [place], [address], 3 17:06:49 PSA, serum or plasm a 2022 023 [facility], [address], [address], [place], [address], 3 16:35:34 folat e, serum 2022 023 [facility]AT [facility], [address], [address], [place], [place], [address], 3 15:16:42 vitam in B12, serum 2022 023 [facility], [address], [address], [place], [address], 3 15:16:41 ESR (eryt hrocy te sedim entat ion rate) , blood 2022 023 [facility]AT [facility], [address], [address], [place], [address], 3 15:03:26 Referral audio logis t refer ral - bilat eral heari ng loss. last seen in 2018 025 [email or web address] [facility], [address], [place], [address], 5 08:25:52 podia trist refer ral - bilat eral bunio ns 2024 025 [email or web address] José Miguel Lares MD, [address], [place], [address], 5 10:37:19 Procedures nerve condu ction study /EMG, upper extre mity (PROC ) - bilat eral wrist s. thumb and index affec maksim. 2024 025 emili [facility] (Imaging), [address] [place], [address], 5 14:29:40 Surgeries None recor ded. Imaging home sleep study - snori ng, large neck BMI> 35, STOP BANG score = 6 2022 023 [email or web address] [facility] ([facility]eds & [facility]), [address], [facility], [place], [address], 3 11:37:42 XR, cervi daniel spine - numbn ess from neck to shoul mattie, rule out arthr itis 2022 023 [facility], [address] [place], [address], 3 11:58:31 Medication Orders silde nafil 100 mg table t 2024 025 [place] [id number], [address] [place], [address], 5 10:15:00 tadal afil 20 mg table t 2023 024 RAHAT Not available 4 10:36:05 trazo done 50 mg table t 2023 024 RAHAT Not available 4 10:34:01 cyclo benza hunter 10 mg table t 2022 023 [email or web address] os Not available 09:12:08 Patient TargetsNo targets recorded. Patient Instructions Encounter Date Encounter Id Patient Instructions Last Modified By Organization Details Last Modified Time 08/24/2022 [id number] healthy upper back: exercises jthabet Not available 08/24/2022 09:59:49 To call or retur n for worsening or concerns jthabet Not available 08/24/2022 09:55:22 02/08/2023 [id number] dash diet: care instructions jthabet Not available 02/08/2023 09:34:20 low sodium diet (2,000 milligram): care instructions jthabet Not available 02/08/2023 09:34:19 high blood pressure: care instructions jthabet Not available 02/08/2023 09:34:19 insomnia: care instructions jthabet Not available 02/08/2023 09:34:19 sleep hygiene information jthabet Not available 02/08/2023 09:34:19 Colorectal Cance r Screening: Care Instructions jthabet Not available 02/08/2023 09:34:19 To call or retur n for worsening or concerns jthabet Not available 02/08/2023 09:33:08 02/13/2024 [id number] insomnia: care instructions jthabet Not available 02/13/2024 10:31:36 sleep hygiene information jthabet Not available 02/13/2024 10:31:37 dash diet: care instructions jthabet Not available 02/13/2024 10:31:36 low sodium diet (2,000 milligram): care instructions jthabet Not available 02/13/2024 10:31:36 high blood pressure: care instructions jthabet Not available 02/13/2024 10:31:37 sleep apnea: car e instructions jthabet Not available 02/13/2024 10:32:40 Colorectal Cance r Screening: Care Instructions jthabet Not available 02/13/2024 10:31:36 Colorectal Cance r Screening: Care Instructions jthabet Not available 02/13/2024 10:31:36 To call or retur n for worsening or concerns jthabet Not available 02/13/2024 10:31:13 02/13/2025 [id number] sleep apnea: car e instructions Not available 02/13/2025 10:14:58 bunion removal: before your surgery Not available 02/13/2025 10:14:58 bunions: care instructions Not available 02/13/2025 10:14:58 Reason for Referral Coremaker Experimental Referral for Buni on bilateral bunions Referring Physician: [facility], Encounter Date: 02/13/2025 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 last seen in 2018 Referring Physician: [facility], Encounter Date: 02/13/2025 Results Created Date Observation Date Name Description Value Unit Range Abnormal Flag Note LastModifiedBy Organization Detail LastModifiedTime 02/08/2002/08/2024 COLOG UARD cologuard result Cancel led - Order d not applic able Not Available [facility] [address], [place], [address], 02/08/2024 10:27:07 06/10/1906/10/2022 COMPL ETE CBC WITH DIFF WBC 4.0 K/mm3 (4.0-1 1.0) Not Available [facility] (Centralized Electronic Ordering - All Locations) Patient Can Go To The Location Of Their Choice, 06/10/2022 14:37:06/10/1906/10/2022 COMPL ETE CBC WITH DIFF RBC 4.58 M/mm3 (4.70- 6.10) low Not Available [facility] (Centralized Electronic Ordering - All Locations) Patient Can Go To The Location Of Their Choice, 06/10/2022 14:37:06/10/1906/10/2022 COMPL ETE CBC WITH DIFF HGB 13.9 gm/dL (13.7- 17.1) Not Available [facility] (Centralized Electronic Ordering - All Locations) Patient Can Go To The Location Of Their Choice, 06/10/2022 14:37:06/10/1906/10/2022 COMPL ETE CBC WITH DIFF HCT 42.2 % (40.5- 50.0) Not Available [facility] (Centralized Electronic Ordering - All Locations) Patient Can Go To The Location Of Their Choice, 06/10/2022 14:37:06/10/1906/10/2022 COMPL ETE CBC WITH DIFF MCV 92.1 fL (80.0- 94.0) Not Available [facility] (Centralized Electronic Ordering - All Locations) Patient Can Go To The Location Of Their Choice, 06/10/2022 14:37:06/10/1906/10/2022 COMPL ETE CBC WITH DIFF MCH 30.3 pg (27.0- 34.0) Not Available [facility] (Centralized Electronic Ordering - All Locations) Patient Can Go To The Location Of Their Choice, 06/10/2022 14:37:06/10/1906/10/2022 COMPL ETE CBC WITH DIFF MCHC 32.9 g/dL (33.0- 37.0) low Not Available [facility] (Centralized Electronic Ordering - All Locations) Patient Can Go To The Location Of Their Choice, 06/10/2022 14:37:06/10/1906/10/2022 COMPL ETE CBC WITH DIFF plt 204 K/mm3 (150-4 60) Not Available [facility] (Centralized Electronic Ordering - All Locations) Patient Can Go To The Location Of Their Choice, 06/10/2022 14:37:06/10/1906/10/2022 COMPL ETE CBC WITH DIFF RDW-SD 41.6 fL (<47.0 ) Not Available [facility] (Centralized Electronic Ordering - All Locations) Patient Can Go To The Location Of Their Choice, 06/10/2022 14:37:06/10/1906/10/2022 COMPL ETE CBC WITH DIFF MPV 10.5 fL (9.4-1 2.4) Not Available [facility] (Centralized Electronic Ordering - All Locations) Patient Can Go To The Location Of Their Choice, 06/10/2022 14:37:06/10/1906/10/2022 COMPL ETE CBC WITH DIFF automated NRBC 0.0 #/100 _WBC' s Not Available [facility] (Centralized Electronic Ordering - All Locations) Patient Can Go To The Location Of Their Choice, 06/10/2022 14:37:06/10/1906/10/2022 COMPL ETE CBC WITH DIFF abs. NRBC 0.0 K/mm3 Not Available [facility] (Centralized Electronic Ordering - All Locations) Patient Can Go To The Location Of Their Choice, 06/10/2022 14:37:06/10/1906/10/2022 COMPL ETE CBC WITH DIFF neut # 1.9 K/mm3 (1.3-7 .0) Not Available [facility] (Centralized Electronic Ordering - All Locations) Patient Can Go To The Location Of Their Choice, 06/10/2022 14:37:06/10/1906/10/2022 COMPL ETE CBC WITH DIFF lymph # 1.5 K/mm3 (0.8-3 .1) Not Available [facility] (Centralized Electronic Ordering - All Locations) Patient Can Go To The Location Of Their Choice, 06/10/2022 14:37:06/10/1906/10/2022 COMPL ETE CBC WITH DIFF mono# 0.2 K/mm3 (0.4-1 .3) low Not Available [facility] (Centralized Electronic Ordering - All Locations) Patient Can Go To The Location Of Their Choice, 06/10/2022 14:37:06/10/1906/10/2022 COMPL ETE CBC WITH DIFF eo # 0.4 K/mm3 (0.0-0 .4) Not Available [facility] (Centralized Electronic Ordering - All Locations) Patient Can Go To The Location Of Their Choice, 06/10/2022 14:37:06/10/1906/10/2022 COMPL ETE CBC WITH DIFF baso # 0.0 K/mm3 (0.0-0 .1) Not Available [facility] (Centralized Electronic Ordering - All Locations) Patient Can Go To The Location Of Their Choice, 06/10/2022 14:37:06/10/1906/10/2022 COMPL ETE CBC WITH DIFF abs. imm gran 0.0 K/mm3 Not Available [facility] (Central[facility] Ordering - All Locations) Patient Can Go To The Location Of Their Choice, 06/10/2022 14:37:06/10/1906/10/2022 COMPL ETE CBC WITH DIFF neut 47.5 % (44-76 ) Not Available [facility] (Centralized Electronic Ordering - All Locations) Patient Can Go To The Location Of Their Choice, 06/10/2022 14:37:06/10/1906/10/2022 COMPL ETE CBC WITH DIFF lymph 37.9 % (15-43 ) Not Available [facility] (Centralized Electronic Ordering - All Locations) Patient Can Go To The Location Of Their Choice, 06/10/2022 14:37:09 06/10/1906/10/2022 COMPL ETE CBC WITH DIFF monocyte 5.0 % (4.5-1 0.5) Not Available [facility] (Centralized Electronic Ordering - All Locations) Patient Can Go To The Location Of Their Choice, 06/10/2022 14:37:09 06/10/1906/10/2022 COMPL ETE CBC WITH DIFF eo 8.8 % (0-6) high Not Available [facility] (Centralized Electronic Ordering - All Locations) Patient Can Go To The Location Of Their Choice, 06/10/2022 14:37:09 06/10/1906/10/2022 COMPL ETE CBC WITH DIFF baso 0.5 % (0-2) Not Available [facility] (Centralized Electronic Ordering - All Locations) Patient Can Go To The Location Of Their Choice, 06/10/2022 14:37:09 06/10/1906/10/2022 COMPL ETE CBC WITH DIFF imm gran 0.3 % Not Available [facility] (Centralized Electronic Ordering - All Locations) Patient Can Go To The Location Of Their Choice, 06/10/2022 14:37:09 06/10/1906/10/2022 SEDIM ENTAT ION RATE, AUTOM ATED sedimentatio n rate,automat ed 2 mm/HR (0-15) Not Available [facility] ([facility] Ordering - All Locations) Patient Can Go To The Location Of Their Choice, 06/10/2022 15:03:25 06/10/1906/10/2022 COMPR EHENS KENDRA METAB OLIC PANL glucose 107 mg/dL (70-99 ) high Not Available [facility] (Centralized Electronic Ordering - All Locations) Patient Can Go To The Location Of Their Choice, 06/10/2022 15:04:47 06/10/19 23 06/10/2022 COMPR EHENS KENDRA METAB OLIC PANL BUN 12 mg/dL (6-20) Not Available [facility] (Centralized Electronic Ordering - All Locations) Patient Can Go To The Location Of Their Choice, 06/10/2022 15:04:47 06/10/1906/10/2022 COMPR EHENS KENDRA METAB OLIC PANL creatinine 1.1 mg/dL (0.7-1 .2) Not Available [facility] (Centralized Electronic Ordering - All Locations) Patient Can Go To The Location Of Their Choice, 06/10/2022 15:04:47 06/10/1906/10/2022 COMPR EHENS KENDRA METAB OLIC PANL sodium 143 mmol/ L (133-1 45) Not Available [facility] (Centralized Electronic Ordering - All Locations) Patient Can Go To The Location Of Their Choice, 06/10/2022 15:04:47 06/10/1906/10/2022 COMPR EHENS KENDRA METAB OLIC PANL potassium 4.5 mmol/ L (3.6-5 .2) Not Available [facility] (Centralized Electronic Ordering - All Locations) Patient Can Go To The Location Of Their Choice, 06/10/2022 15:04:47 06/10/1906/10/2022 COMPR EHENS KENDRA METAB OLIC PANL chloride 105 mmol/ L (98-10 7) Not Available [facility] (Centralized Electronic Ordering - All Locations) Patient Can Go To The Location Of Their Choice, 06/10/2022 15:04:47 06/10/1906/10/2022 COMPR EHENS KENDRA METAB OLIC PANL bicarbonate 29 mmol/ L (22-29 ) Not Available [facility] (Centralized Electronic Ordering - All Locations) Patient Can Go To The Location Of Their Choice, 06/10/2022 15:04:47 06/10/1906/10/2022 COMPR EHENS KENDRA METAB OLIC PANL anion gap 9 (4-17) Not Available [facility] (Centralized Electronic Ordering - All Locations) Patient Can Go To The Location Of Their Choice, 06/10/2022 15:04:47 06/10/1906/10/2022 COMPR EHENS KENDRA METAB OLIC PANL albumin 4.6 gm/dL (3.4-4 .8) Not Available [facility] (Centralized Electronic Ordering - All Locations) Patient Can Go To The Location Of Their Choice, 06/10/2022 15:04:47 06/10/1906/10/2022 COMPR EHENS KENDRA METAB OLIC PANL calcium 9.3 mg/dL (8.6-1 0.5) Not Available [facility] (Centralized Electronic Ordering - All Locations) Patient Can Go To The Location Of Their Choice, 06/10/2022 15:04:47 06/10/1906/10/2022 COMPR EHENS KENDRA METAB OLIC PANL bilirubin,to sara 0.4 mg/dL (0-1.2 ) Not Available [facility] (Centralized Electronic Ordering - All Locations) Patient Can Go To The Location Of Their Choice, 06/10/2022 15:04:47 06/10/1906/10/2022 COMPR EHENS KENDRA METAB OLIC PANL total protein 7.3 gm/dL (6.2-8 .2) Not Available [facility] (Centralized Electronic Ordering - All Locations) Patient Can Go To The Location Of Their Choice, 06/10/2022 15:04:47 06/10/1906/10/2022 COMPR EHENS KENDRA METAB OLIC PANL Ag ratio 1.7 Not Available [facility] (Centralized Electronic Ordering - All Locations) Patient Can Go To The Location Of Their Choice, 06/10/2022 15:04:47 06/10/1906/10/2022 COMPR EHENS KENDRA METAB OLIC PANL AST 18 U/L (0-40) Not Available [facility] (Centralized Electronic Ordering - All Locations) Patient Can Go To The Location Of Their Choice, 06/10/2022 15:04:47 06/10/1906/10/2022 COMPR EHENS KENDRA METAB OLIC PANL alk phos 50 U/L (40-12 9) Not Available [facility] ([facility]ized Electronic Ordering - All Locations) Patient Can Go To The Location Of Their Choice, 06/10/2022 15:04:47 06/10/1906/10/2022 COMPR EHENS KENDRA METAB OLIC PANL ALT 20 U/L (0-41) Not Available [facility] ([facility]ized Electronic Ordering - All Locations) Patient Can Go To The Location Of Their Choice, 06/10/2022 15:04:47 06/10/1906/10/2022 COMPR EHENS KENDRA METAB OLIC PANL estimated GFR creatinine 82 mL/mi n/1.7 3_M2 Creat inine based estim ated glome rular filtr ation (eGFR ) in adult s is calcu lated using the Natio nal Kidne y Found ation recom carrie d 2020 CKD-E PI equat ion. Estim ates GFR from serum creat inine , age and sex. Not Available [facility] (Centralized Electronic Ordering - All Locations) Patient Can Go To The Location Of Their Choice, 06/10/2022 15:04:47 06/10/1906/10/2022 LIPID PANEL cholesterol, total 218 mg/dL (<200) high Not Available [facility] ([facility] Order[facility] - All Locations) Patient Can Go To The Location Of Their Choice, 06/10/2022 15:04:49 06/10/1906/10/2022 LIPID PANEL triglyceride 75 mg/dL (<150) Not Available [facility]ations) Patient Can Go To The Location Of Their Choice, 06/10/2022 15:04:49 06/10/1906/10/2022 LIPID PANEL HDL chol 56 mg/dL (>39) Not Available [facility] ([facility] Ordering - All Locations) Patient Can Go To The Location Of Their Choice, 06/10/2022 15:04:49 06/10/1906/10/2022 LIPID PANEL LDL cholesterol, calculated 147 mg/dL (0-130 ) high Not Available [facility] ([facility]ized Electronic Ordering - All Locations) Patient Can Go To The Location Of Their Choice, 06/10/2022 15:04:49 06/10/1906/10/2022 LIPID PANEL non HDL cholesterol (calc) 162 mg/dL (<160) high Not Available [facility] ([facility] Ordering - All Locations) Patient Can Go To The Location Of Their Choice, 06/10/2022 15:04:49 06/10/1906/10/2022 HEMOG LOBIN A1C hemoglobin A1C 5.7 % (4.0-5 .6) high MONIT ORING : In known diabe tic patie nts, hemog lobin A1c targe ts shoul d be discu ssed with healt h care provi mattie. DIAGN OSTIC USE: The Ameri can Diabe any Assoc iatio n (ADA) and the World Healt h Organ izati on (WHO) recom mend the use of HbA1c to diagn ose diabe any using a thres hold of 6.5%. Patie nts who have an HbA1c betwe en 5.7% and 6.4% are consi dered at incre ased risk for devel oping diabe any in the futur e. CAUTI ON: False ly low HbA1c resul ts may be obser lance in patie nts with hemol ytic anemi a, homoz ygous forms of abnor mal hemog lobin (e.g. SS, CC, SC), pregn nickie, recen t blood loss or hemog lobin F great er than 7%. Fruct osami ne may be used as an alter krystle test in these cases . REFER ENCE: ADA: Stand ards of Medic al Care in Diabe any 2019, The Journ al of Clini daniel and Appli ed Resea rc and Educa tion Volum e 43, Suppl ement 1 Not Available [facility] (Centralized Electronic Ordering - All Locations) Patient Can Go To The Location Of Their Choice, 06/10/2022 15:06:55 06/10/1906/10/2022 PSA SCREE N PSA 0.6 NG/mL (0-4) TEST PERFO RMED USING THE PAMELA ELECT PAMELA MILLU MINES CENCE TOTAL PSA ASSAY . PSA VALUE S OBTAI DION WITH OTHER ASSAY METHO DS OR KITS CANNO T BE USED INTER BROWN EABLY . Not Available [facility] (Centralized Electronic Ordering - All Locations) Patient Can Go To The Location Of Their Choice, 06/10/2022 15:10:48 06/10/1906/10/2022 TSH TSH 1.20 uIU/m L (0.4-4 .2) Not Available [facility] ([facility]ized Electronic Ordering - All Locations) Patient Can Go To The Location Of Their Choice, 06/10/2022 15:10:49 06/10/1906/10/2022 VITAM IN B12 vitamin B12 579 pg/mL (232-1 245) Not Available [facility] ([facility]ized Electronic Ordering - All Locations) Patient Can Go To The Location Of Their Choice, 06/10/2022 15:16:41 06/10/1906/10/2022 FOLIC ACID folic acid 13.7 NG/mL (4.5-3 2.2) Not Available [facility] ([facility]ized Electronic Ordering - All Locations) Patient Can Go To The Location Of Their Choice, 06/10/2022 15:16:42 06/10/1906/11/2022 ANTI- HEPAT ITIS C anti-hepatit is C (neg) normal NEGAT KENDRA Refer ence range : Negat kendra This test was perfo rmed on the Abbot t Archi tect immun oassa y syste m. Not Available [facility] (Centralized Electronic Ordering - All Locations) Patient Can Go To The Location Of Their Choice, 06/11/2022 10:50:09 02/17/2002/16/2023 COMPL ETE CBC WITH DIFF WBC 3.9 K/mm3 (4.0-1 1.0) low Not Available [facility] (Centralized Electronic Ordering - All Locations) Patient Can Go To The Location Of Their Choice, 02/16/2023 16:03:49 02/17/2002/16/2023 COMPL ETE CBC WITH DIFF RBC 4.42 M/mm3 (4.70- 6.10) low Not Available [facility] (Centralized Electronic Ordering - All Locations) Patient Can Go To The Location Of Their Choice, 02/16/2023 16:03:49 02/17/2002/16/2023 COMPL ETE CBC WITH DIFF HGB 13.2 gm/dL (13.7- 17.1) low Not Available [facility] (Centralized Electronic Ordering - All Locations) Patient Can Go To The Location Of Their Choice, 02/16/2023 16:03:49 02/17/2002/16/2023 COMPL ETE CBC WITH DIFF HCT 41.2 % (40.5- 50.0) Not Available [facility] (Centralized Electronic Ordering - All Locations) Patient Can Go To The Location Of Their Choice, 02/16/2023 16:03:49 02/17/2002/16/2023 COMPL ETE CBC WITH DIFF MCV 93.2 fL (80.0- 94.0) Not Available [facility] (Centralized Electronic Ordering - All Locations) Patient Can Go To The Location Of Their Choice, 02/16/2023 16:03:49 02/17/2002/16/2023 COMPL ETE CBC WITH DIFF MCH 29.9 pg (27.0- 34.0) Not Available [facility] (Centralized Electronic Ordering - All Locations) Patient Can Go To The Location Of Their Choice, 02/16/2023 16:03:49 02/17/2002/16/2023 COMPL ETE CBC WITH DIFF MCHC 32.0 g/dL (33.0- 37.0) low Not Available [facility] (Centralized Electronic Ordering - All Locations) Patient Can Go To The Location Of Their Choice, 02/16/2023 16:03:49 02/17/2002/16/2023 COMPL ETE CBC WITH DIFF plt 165 K/mm3 (150-4 60) Not Available [facility] (Centralized Electronic Ordering - All Locations) Patient Can Go To The Location Of Their Choice, 02/16/2023 16:03:49 02/17/2002/16/2023 COMPL ETE CBC WITH DIFF RDW-SD 43.2 fL (<47.0 ) Not Available [facility] (Centralized Electronic Ordering - All Locations) Patient Can Go To The Location Of Their Choice, 02/16/2023 16:03:49 02/17/2002/16/2023 COMPL ETE CBC WITH DIFF MPV 11.4 fL (9.4-1 2.4) Not Available [facility] ([facility]ized Electronic Ordering - All Locations) Patient Can Go To The Location Of Their Choice, 02/16/2023 16:03:49 02/17/2002/16/2023 COMPL ETE CBC WITH DIFF automated NRBC 0.0 #/100 _WBC' s Not Available [facility] (Centralized Electronic Ordering - All Locations) Patient Can Go To The Location Of Their Choice, 02/16/2023 16:03:49 02/17/2002/16/2023 COMPL ETE CBC WITH DIFF abs. NRBC 0.0 K/mm3 Not Available [facility] (Centralized Electronic Ordering - All Locations) Patient Can Go To The Location Of Their Choice, 02/16/2023 16:03:49 02/17/2002/16/2023 COMPL ETE CBC WITH DIFF neut # 1.7 K/mm3 (1.3-7 .0) Not Available [facility] (Centralized Electronic Ordering - All Locations) Patient Can Go To The Location Of Their Choice, 02/16/2023 16:03:49 02/17/2002/16/2023 COMPL ETE CBC WITH DIFF lymph # 1.6 K/mm3 (0.8-3 .1) Not Available [facility] (Centralized Electronic Ordering - All Locations) Patient Can Go To The Location Of Their Choice, 02/16/2023 16:03:49 02/17/2002/16/2023 COMPL ETE CBC WITH DIFF mono# 0.3 K/mm3 (0.4-1 .3) low Not Available [facility] (Centralized Electronic Ordering - All Locations) Patient Can Go To The Location Of Their Choice, 02/16/2023 16:03:49 02/17/2002/16/2023 COMPL ETE CBC WITH DIFF eo # 0.3 K/mm3 (0.0-0 .4) Not Available [facility] (Centralized Electronic Ordering - All Locations) Patient Can Go To The Location Of Their Choice, 02/16/2023 16:03:49 02/17/2002/16/2023 COMPL ETE CBC WITH DIFF baso # 0.0 K/mm3 (0.0-0 .1) Not Available [facility] (Centralized Electronic Ordering - All Locations) Patient Can Go To The Location Of Their Choice, 02/16/2023 16:03:49 02/17/2002/16/2023 COMPL ETE CBC WITH DIFF abs. imm gran 0.0 K/mm3 Not Available [facility] ([facility] Ordering - All Locations) Patient Can Go To The Location Of Their Choice, 02/16/2023 16:03:49 02/17/2002/16/2023 COMPL ETE CBC WITH DIFF neut 43.4 % (44-76 ) low Not Available [facility] (Centralized Electronic Ordering - All Locations) Patient Can Go To The Location Of Their Choice, 02/16/2023 16:03:49 02/17/2002/16/2023 COMPL ETE CBC WITH DIFF lymph 42.2 % (15-43 ) Not Available [facility] (Centralized Electronic Ordering - All Locations) Patient Can Go To The Location Of Their Choice, 02/16/2023 16:03:49 02/17/2002/16/2023 COMPL ETE CBC WITH DIFF monocyte 6.4 % (4.5-1 0.5) Not Available [facility] (Centralized Electronic Ordering - All Locations) Patient Can Go To The Location Of Their Choice, 02/16/2023 16:03:49 02/17/2002/16/2023 COMPL ETE CBC WITH DIFF eo 6.9 % (0-6) high Not Available [facility] (Centralized Electronic Ordering - All Locations) Patient Can Go To The Location Of Their Choice, 02/16/2023 16:03:49 02/17/2002/16/2023 COMPL ETE CBC WITH DIFF baso 0.8 % (0-2) Not Available [facility] (Centralized Electronic Ordering - All Locations) Patient Can Go To The Location Of Their Choice, 02/16/2023 16:03:49 02/17/2002/16/2023 COMPL ETE CBC WITH DIFF imm gran 0.3 % Not Available [facility] ([facility]ized Electronic Ordering - All Locations) Patient Can Go To The Location Of Their Choice, 02/16/2023 16:03:49 02/17/2002/16/2023 COMPR EHENS KENDRA METAB OLIC PANL glucose 93 mg/dL (70-99 ) Not Available [facility] (Centralized Electronic Ordering - All Locations) Patient Can Go To The Location Of Their Choice, 02/16/2023 16:31:13 02/17/2002/16/2023 COMPR EHENS KENDRA METAB OLIC PANL BUN 11 mg/dL (6-20) Not Available [facility] (Centralized Electronic Ordering - All Locations) Patient Can Go To The Location Of Their Choice, 02/16/2023 16:31:13 02/17/2002/16/2023 COMPR EHENS KENDRA METAB OLIC PANL creatinine 1.0 mg/dL (0.7-1 .2) Not Available [facility] ([facility]ized [facility] Ordering - All Locations) Patient Can Go To The Location Of Their Choice, 02/16/2023 16:31:13 02/17/2002/16/2023 COMPR EHENS KENDRA METAB OLIC PANL sodium 141 mmol/ L (133-1 45) Not Available [facility] ([facility] Ordering - All Locations) Patient Can Go To The Location Of Their Choice, 02/16/2023 16:31:13 02/17/2002/16/2023 COMPR EHENS KENDRA METAB OLIC PANL potassium 4.0 mmol/ L (3.6-5 .2) Not Available [facility] ([facility] Ordering - All Locations) Patient Can Go To The Location Of Their Choice, 02/16/2023 16:31:13 02/17/2002/16/2023 COMPR EHENS KENDRA METAB OLIC PANL chloride 104 mmol/ L (98-10 7) Not Available [facility] ([facility]ized Electronic Ordering - All Locations) Patient Can Go To The Location Of Their Choice, 02/16/2023 16:31:13 02/17/2002/16/2023 COMPR EHENS KENDRA METAB OLIC PANL bicarbonate 24 mmol/ L (22-29 ) Not Available [facility] (Centralized Electronic Ordering - All Locations) Patient Can Go To The Location Of Their Choice, 02/16/2023 16:31:13 02/17/2002/16/2023 COMPR EHENS KENDRA METAB OLIC PANL anion gap 13 (4-17) Not Available [facility] ([facility] Ordering - All Locations) Patient Can Go To The Location Of Their Choice, 02/16/2023 16:31:13 02/17/2002/16/2023 COMPR EHENS KENDRA METAB OLIC PANL albumin 4.7 gm/dL (3.4-4 .8) Not Available [facility] ([facility] Electronic Ordering - All Locations) Patient Can Go To The Location Of Their Choice, 02/16/2023 16:31:13 02/17/2002/16/2023 COMPR EHENS KENDRA METAB OLIC PANL calcium 9.5 mg/dL (8.6-1 0.5) Not Available [facility] ([facility] Electronic Ordering - All Locations) Patient Can Go To The Location Of Their Choice, 02/16/2023 16:31:13 02/17/2002/16/2023 COMPR EHENS KENDRA METAB OLIC PANL bilirubin,to sara 0.4 mg/dL (0-1.2 ) Not Available [facility] ([facility] Ordering - All Locations) Patient Can Go To The Location Of Their Choice, 02/16/2023 16:31:13 02/17/2002/16/2023 COMPR EHENS KENDRA METAB OLIC PANL total protein 6.7 gm/dL (6.2-8 .2) Not Available [facility] ([facility] Ordering - All Locations) Patient Can Go To The Location Of Their Choice, 02/16/2023 16:31:13 02/17/2002/16/2023 COMPR EHENS KENDRA METAB OLIC PANL Ag ratio 2.4 Not Available [facility] ([facility]ized Electronic Ordering - All Locations) Patient Can Go To The Location Of Their Choice, 02/16/2023 16:31:13 02/17/2002/16/2023 COMPR EHENS KENDRA METAB OLIC PANL AST 18 U/L (0-40) Not Available [facility] ([facility] Ordering - All Locations) Patient Can Go To The Location Of Their Choice, 02/16/2023 16:31:13 02/17/2002/16/2023 COMPR EHENS KENDRA METAB OLIC PANL alk phos 52 U/L (40-12 9) Not Available [facility] ([facility] Ordering - All Locations) Patient Can Go To The Location Of Their Choice, 02/16/2023 16:31:13 02/17/2002/16/2023 COMPR EHENS KENDRA METAB OLIC PANL ALT 18 U/L (0-41) Not Available [facility] ([facility] Ordering - All Locations) Patient Can Go To The Location Of Their Choice, 02/16/2023 16:31:13 02/17/2002/16/2023 COMPR EHENS KENDRA METAB OLIC PANL estimated GFR creatinine 86 mL/mi n/1.7 3_M2 Creat inine based estim ated glome jeisonr israel ation (eGFR ) in adult s is calcu lated using the Natio nal Kidne y Found ation recom carrie d 2020 CKD-E PI equat ion. Estim ates GFR from serum creat inine , age and sex. Not Available [facility] ([facility]ized Electronic Ordering - All Locations) Patient Can Go To The Location Of Their Choice, 02/16/2023 16:31:13 02/17/2002/16/2023 LIPID PANEL cholesterol, total 200 mg/dL (<200) high Not Available [facility] ([facility] - All Locations) Patient Can Go To The Location Of Their Choice, 02/16/2023 16:31:14 02/17/2002/16/2023 LIPID PANEL triglyceride 79 mg/dL (<150) Not Available [facility] ([facility] - [facility] Locations) Patient Can Go To The Location Of Their Choice, 02/16/2023 16:31:14 02/17/2002/16/2023 LIPID PANEL HDL chol 46 mg/dL (>39) Not Available [facility] ([facility] Ordering - All Locations) Patient Can Go To The Location Of Their Choice, 02/16/2023 16:31:14 02/17/2002/16/2023 LIPID PANEL LDL cholesterol, calculated 138 mg/dL (0-130 ) high Not Available [facility] ([facility] Ordering - All Locations) Patient Can Go To The Location Of Their Choice, 02/16/2023 16:31:14 02/17/2002/16/2023 LIPID PANEL non HDL cholesterol (calc) 154 mg/dL (<160) Not Available [facility] ([facility] Order[facility] - All Locations) Patient Can Go To The Location Of Their Choice, 02/16/2023 16:31:14 02/17/2002/16/2023 PSA SCREE N PSA 0.7 NG/mL (0-4) TEST PERFO RMED USING THE PAMELA ELECT PAMELA MILLU MINES CENCE TOTAL PSA ASSAY . PSA VALUE S OBTAI DION WITH OTHER ASSAY METHO DS OR KITS CANNO T BE USED INTER BROWN EABLY . Not Available [facility] ([facility]ized [facility] Ordering - All Locations) Patient Can Go To The Location Of Their Choice, 02/16/2023 16:35:34 02/17/2002/16/2023 TSH TSH 1.85 uIU/m L (0.4-4 .2) Not Available [facility] ([facility] Ordering - All Locations) Patient Can Go To The Location Of Their Choice, 02/16/2023 16:35:35 02/17/2002/16/2023 HEMOG LOBIN A1C hemoglobin A1C 5.6 % (4.0-5 .6) MONIT ORING : In known diabe tic patie nts, hemog lobin A1c targe ts shoul d be discu ssed with healt h care provi mattie. DIAGN OSTIC USE: The Ameri can Diabe any Assoc iatio n (ADA) and the World Healt h Organ izati on (WHO) recom mend the use of HbA1c to diagn ose diabe any using a thres hold of 6.5%. Patie nts who have an HbA1c betwe en 5.7% and 6.4% are consi dered at incre ased risk for devel oping diabe any in the [place]: False ly low HbA1c resul ts may be obser lance in patie nts with hemol ytic anemi a, homoz ygous forms of abnor mal hemog lobin (e.g. SS, CC, SC), pregn nickie, recen t blood loss or hemog lobin F great er than 7%. Fruct osami ne may be used as an alter krystle test in these cases . REFER ENCE: ADA: Stand ards of Medic al Care in Diabe any 2019, The Journ al of Clini daniel and Appli ed Resea rc and Educa tion Volum e 43, Suppl ement 1 Not Available [facility] ([facility] Ordering - All Locations) Patient Can Go To The Location Of Their Choice, 02/16/2023 17:06:49 02/29/20 24 03/01/2024 CBC WITH DIFFE RENTI AL/PL ATELE T WBC 5.1 x10e3 /uL 3.4-10 .8 normal Eff ectiv e Decem debora 2023 [place] 24240 5 WBC will be made* * non-o rdera ble as a stand -dayanna e order code. Not Available [facility] ([facility]) [address] [facility] [address], [place], [address], 03/17/2024 16:19:10 02/29/20 24 03/01/2024 CBC WITH DIFFE RENTI AL/PL ATELE T RBC 4.72 x10e6 /uL 4.14-5 .80 normal Not Available [facility] ([facility]) [address] [place], [address], 03/17/2024 16:19:10 02/29/20 24 03/01/2024 CBC WITH DIFFE RENTI AL/PL ATELE T hemoglobin 14.2 g/dL 13.0-1 7.7 normal Not Available [facility] ([facility]) [address] [facility] [address], [place], [address], 03/17/2024 16:19:10 02/29/20 24 03/01/2024 CBC WITH DIFFE RENTI AL/PL ATELE T hematocrit 44.0 % 37.5-5 1.0 normal Not Available [facility] ([facility]) [address] [facility] [address], [place], [address], 03/17/2024 16:19:10 02/29/20 24 03/01/2024 CBC WITH DIFFE RENTI AL/PL ATELE T MCV 93 fL 79-97 normal Not Available [facility] ([facility]) [address] [place], [address], 03/17/2024 16:19:10 02/29/20 24 03/01/2024 CBC WITH DIFFE RENTI AL/PL ATELE T MCH 30.1 pg 26.6-3 3.0 normal Not Available [facility] ([facility]) [address] [place], [address], 03/17/2024 16:19:10 02/29/20 24 03/01/2024 CBC WITH DIFFE RENTI AL/PL ATELE T MCHC 32.3 g/dL 31.5-3 5.7 normal Not Available [facility] ([facility]) [address] [facility] [address], [place], [address], 03/17/2024 16:19:10 02/29/20 24 03/01/2024 CBC WITH DIFFE RENTI AL/PL ATELE T RDW 12.2 % 11.6-1 5.4 Not Available [facility] ([facility]) [address] [facility] [address], [place], [address], 03/17/2024 16:19:10 02/29/20 24 03/01/2024 CBC WITH DIFFE RENTI AL/PL ATELE T platelets 180 x10e3 /uL 150-45 0 normal Not Available [facility] ([facility]) [address] [facility] [address], [place], [address], 03/17/2024 16:19:10 02/29/20 24 03/01/2024 CBC WITH DIFFE RENTI AL/PL ATELE T neutrophils 50 % not estab. normal Not Available [facility] ([facility]) [address] [facility] [address], [place], [address], 03/17/2024 16:19:10 02/29/20 24 03/01/2024 CBC WITH DIFFE RENTI AL/PL ATELE T lymphs 34 % not estab. normal Not Available [facility] ([facility]) [address] [facility] [address], [place], [address], 03/17/2024 16:19:10 02/29/20 24 03/01/2024 CBC WITH DIFFE RENTI AL/PL ATELE T monocytes 6 % not estab. normal Not Available [facility] ([facility]) [address] [facility] [address], [place], [address], 03/17/2024 16:19:10 02/29/20 24 03/01/2024 CBC WITH DIFFE RENTI AL/PL ATELE T eos 9 % not estab. normal Not Available [facility] ([facility]) [address] [place], [address], 03/17/2024 16:19:10 02/29/20 24 03/01/2024 CBC WITH DIFFE RENTI AL/PL ATELE T basos 0 % not estab. 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 0 normal Not Available [facility] ([facility]) [address] [place], [address], 03/17/2024 16:19:10 02/29/20 24 03/01/2024 CBC WITH DIFFE RENTI AL/PL ATELE T lymphs (absolute) 1.8 x10e3 /uL 0.7-3. 1 normal Not Available [facility] ([facility]) [address] [place], [address], 03/17/2024 16:19:10 02/29/20 24 03/01/2024 CBC WITH DIFFE RENTI AL/PL ATELE T monocytes(ab solute) 0.3 x10e3 /uL 0.1-0. 9 normal Not Available [facility] ([facility]) [address] [place], [address], 03/17/2024 16:19:10 02/29/20 24 03/01/2024 CBC WITH DIFFE RENTI AL/PL ATELE T eos (absolute) 0.4 x10e3 /uL 0.0-0. 4 normal Not Available [facility] ([facility]) [address] [facility] [address] [place], [place], [address], 03/17/2024 16:19:10 02/29/20 24 03/01/2024 CBC WITH DIFFE RENTI AL/PL ATELE T baso (absolute) 0.0 x10e3 /uL 0.0-0. 2 normal Not Available [facility] ([facility]) [address] [facility] [address] [place], [place], [address], 03/17/2024 16:19:10 02/29/20 24 03/01/2024 CBC WITH DIFFE RENTI AL/PL ATELE T immature granulocytes 1 % not estab. Not Available [facility] ([facility]) [address] [facility] [place], [place], [address], 03/17/2024 16:19:10 02/29/20 24 03/01/2024 CBC WITH DIFFE RENTI AL/PL ATELE T immature grans (abs) 0.0 x10e3 /uL 0.0-0. 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 METAB OLIC PANEL (14) glucose 107 mg/dL 70-99 above high normal Not Available [facility] ([facility]) [address] [place], [address], 03/17/2024 16:19:11 02/29/20 24 03/01/2024 COMP. METAB OLIC PANEL (14) BUN 15 mg/dL 6-24 normal Not Available [facility] ([facility]) [address] [place], [address], 03/17/2024 16:19:11 02/29/20 24 03/01/2024 COMP. METAB OLIC PANEL (14) creatinine 0.99 mg/dL 0.76-1 .27 normal Not Available [facility] ([facility]) [address] [facility] [place], [address], 03/17/2024 16:19:11 02/29/20 24 03/01/2024 COMP. METAB OLIC PANEL (14) eGFR 89 mL/mi n/1.7 3 >59 normal Not Available [facility] ([facility]) [address] [place], [address], 03/17/2024 16:19:11 02/29/20 24 03/01/2024 COMP. METAB OLIC PANEL (14) BUN/creatini ne ratio 15 9-20 normal Not Available [facility] ([facility]) [address] [place], [address], 03/17/2024 16:19:11 02/29/20 24 03/01/2024 COMP. METAB OLIC PANEL (14) sodium 141 mmol/ L 134-14 4 normal Not Available [facility] ([facility]) [address] [place], [address], 03/17/2024 16:19:11 02/29/20 24 03/01/2024 COMP. METAB OLIC PANEL (14) potassium 4.3 mmol/ L 3.5-5. 2 normal Not Available [facility] ([facility]) [address] [place], [address], 03/17/2024 16:19:11 02/29/20 24 03/01/2024 COMP. METAB OLIC PANEL (14) chloride 105 mmol/ L 96-106 normal Not Available [facility] ([facility]) [address] [place], [address], 03/17/2024 16:19:11 02/29/20 24 03/01/2024 COMP. METAB OLIC PANEL (14) carbon dioxide, total 23 mmol/ L 20-29 normal Not Available [facility] ([facility]) [address] [place], [address], 03/17/2024 16:19:11 02/29/20 24 03/01/2024 COMP. METAB OLIC PANEL (14) calcium 8.7 mg/dL 8.7-10 .2 normal Not Available [facility] ([facility]) [address] [place], [address], 03/17/2024 16:19:11 02/29/20 24 03/01/2024 COMP. METAB OLIC PANEL (14) protein, total 7.2 g/dL 6.0-8. 5 normal Not Available [facility] ([facility]) [address] [place], [address], 03/17/2024 16:19:11 02/29/20 24 03/01/2024 COMP. METAB OLIC PANEL (14) albumin 4.2 g/dL 3.8-4. 9 normal Not Available [facility] ([facility]) [address] [place], [address], 03/17/2024 16:19:11 02/29/20 24 03/01/2024 COMP. METAB OLIC PANEL (14) globulin, total 3.0 g/dL 1.5-4. 5 Not Available [facility] ([facility]) [address] [facility] [address], [place], [address], 03/17/2024 16:19:11 02/29/20 24 03/01/2024 COMP. METAB OLIC PANEL (14) bilirubin, total 0.4 mg/dL 0.0-1. 2 normal Not Available [facility] ([facility]) [address] [facility] [place], [address], 03/17/2024 16:19:11 02/29/20 24 03/01/2024 COMP. METAB OLIC PANEL (14) alkaline phosphatase 42 IU/L 44-121 below low normal Not Available [facility] ([facility]) [address] [facility] [address], [place], [address], 03/17/2024 16:19:11 02/29/20 24 03/01/2024 COMP. METAB OLIC PANEL (14) AST (SGOT) 19 IU/L 0-40 normal Not Available [facility] ([facility]) [address] [facility] [address] [place], [place], [address], 03/17/2024 16:19:11 02/29/20 24 03/01/2024 COMP. METAB OLIC PANEL (14) ALT (SGPT) 20 IU/L 0-44 normal Not Available [facility] ([facility]) [address] [facility] [address], [place], [address], 03/17/2024 16:19:11 02/29/20 24 03/01/2024 LIPID PANEL cholesterol, total 241 mg/dL 100-19 9 above high normal Not Available [facility] ([facility]) [address] [place], [address], 03/17/2024 16:19:12 02/29/20 24 03/01/2024 LIPID PANEL triglyceride s 84 mg/dL 0-149 normal Not Available [facility] ([facility]) [address] [place], [address], 03/17/2024 16:19:12 02/29/20 24 03/01/2024 LIPID PANEL HDL cholesterol 63 mg/dL >39 normal Not Available [facility] ([facility]) [address] [place], [address], 03/17/2024 16:19:12 02/29/20 24 03/01/2024 LIPID PANEL VLDL cholesterol daniel 14 mg/dL 5-40 Not Available [facility] ([facility]) [address] [place], [address], 03/17/2024 16:19:12 02/29/20 24 03/01/2024 LIPID PANEL LDL chol calc ([facility]) 164 mg/dL 0-99 above high normal Not Available [facility] ([facility]) [address] [place], [address], 03/17/2024 16:19:12 02/29/20 24 03/01/2024 LIPID PANEL LDL calc 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 Trang hernandez et.al . JCEM 2017, 102;1 161-1 173. PMID: 89726 103. Not Available [facility] ([facility]) [address] [place], [address], 03/17/2024 16:19:13 02/29/20 24 03/01/2024 TESTO STERO NE,FR EE AND TOTAL free testosterone (direct) 11.1 pg/mL 7.2-24 .0 Not Available [facility] ([facility]) [address] [place], [address], 03/17/2024 16:19:13 02/29/20 24 03/14/2024 THYRO ID STIMU LATIN G HORMO NE TSH-icma 1.3 uu/mL Refer ence Range : Non-P regna nt Adult 0.450 -4.50 0 Not Available [facility] [address] [facility], [place], [address], 03/17/2024 16:19:13 02/29/20 24 03/17/2024 PROST ATE SPECI FIC ANTIG EN prostate specific antigen 0.551 NG/mL This PSA resul t was deter mined using the [employer] an [employer] SERVICESi lumin ometr ic immun oassa y and [...] prost atic hyper plasi a. Not Available [facility] [address] [facility], [place], [address], 03/17/2024 16:19:14 02/29/20 24 03/01/2024 HEMOG LOBIN A1C hemoglobin A1C 5.8 % 4.8-5. 6 above high normal Predi abete s: 5.7 - 6.4 Diabe any: >6.4 Glyce yanely contr ol for adult s with diabe any: <7.0 Not Available [facility] ([facility]) [address] [facility] [address], [place], [address], 03/17/2024 16:19:15 02/29/20 24 03/01/2024 CORTI PERRY - AM cortisol - AM 8.5 ug/dL 6.2-19 .4 Not Available [facility] ([facility]) [address] [facility] [address], [place], [address], 03/17/2024 16:19:15 05/24/19 25 05/24/2024 COLOG UARD cologuard result reportable NEGATI VE negati ve normal NEGAT KENDRA TEST RESUL T. A negat kendra Colog uard resul t indic ates a low likel ihood that a color ectal cance r (CRC) or advan cherelle adeno ma (gabe omato us polyp s with more advan cherelle pre-m align ant featu res) is prese nt. The [facility] e that a perso n with a negat kendra Colog uard test has a color ectal cance r is less than 1 in 1500 (nega tive predi ctive value >99.9 %) or has an advan cherelle adeno ma is less than 5.3% (nega tive predi ctive value 94.7% ). These data are based on a prosp ectiv e cross -sect ional study of ,00 0 ind[place]ual [place] at [place] risk for color ectal cance r who were scree dion with both Colog uard and colon oscop y. (Samie mansoor T. et al, N Engl J Med 2014; 370(1 4):12 86-12 97) The trinidad l value (refe rence range ) for this assay is negat kendra. COLOG UARD RE-SC REENI NG RECOM MENDA TION: Perio dic color ectal cance r scree antolin is an impor tant part of preve ntive healt hcare for asymp tomat ic indiv [place]ual [place] risk for color ectal cance r. Follo wing a negat kendra Colog uard resul t, the Ameri can Cance r Socie ty and U.S. Multi -Soci ety Task Force scree antolin guide lines recom mend a Colog uard re-sc reeni ng inter jr of 3 years . Refer ences : Ameri can Cance r Socie ty Guide line for Color ectal Cance r Scree antolin: https ://madi w.can cer.o rg/ca ncer/ colon -rect al-ca ncer/ detec tion- diagn osis- stagi ng/ac s-rec ommen datio ns.ht ml.; Ag DK, Katelyn butler CR, Treasure TitusK, Color ectal Cance r Scree antolin: Recom menda tions for Physi cians and Patie nts from the U.S. Multi -Soci ety Task Force on Color ectal Cance r Scree antolin , Antonio nice y 2017; 112:1 016-1 030. TEST DESCR IPTIO N: [place] site algor ithmi c ulises sis of stool DNA-b iomar kers with hemog lobin immun oassa y. Quant itati ve value s of indiv idual bioma rkers are not repor table and are not assoc iated with indiv idual bioma rker resul t refer ence range s. Colog uard is inten ded for color ectal cance r scree antolin of adult s of eithe r sex, 45 years or older , who are at [facility] for color ectal cance r (CRC) . Colog uard has been appro lance for use by the U.S. FDA. The perfo rmanc e of Colog uard was estab lishe d in a cross secti onal study of [facility] adult s aged 50-84 . Colog uard perfo rmanc e in patie nts ages 45 to 49 years was estim ated by sub-g roup ulises sis of near- age group s. Colon oscop ies perfo rmed for a posit kendra resul t may find as the most clini josie signi clara jimio n: color ectal cance r [4.0% ], advan cherelle adeno ma (incl uding sessi le [place] maksim polyp s great er than or equal to 1cm diame ter) [20%] or non- advan cherelle adeno ma [31%] ; or no color ectal neopl kai [45%] . These estim ates are deriv ed from a prosp ectiv e cross -sect ional scree antolin study of 10,00 0 indiv idual s at [facility] risk for color ectal cance r who were scree dion with both Colog uard and colon oscop y. (Herminio Jimenez et al, N Engl J Med 2014; 370(1 4):12 86-12 97.) Colog uard may produ ce a false negat kendra or false posit kendra resul t (no color ectal cance r or preca ncero us polyp prese nt at colon oscop y follo w up). A negat kendra Colog uard test resul t does not guara ntee the absen ce of CRC or advan cherelle adeno ma (pre- cance r). The curre nt Colog uard scree antolin inter jr is every 3 years . (Amer ican Cance r Socie ty and U.S. Multi -Soci ety Task Force ). Colog uard perfo rmanc e data in a 10,00 0 patie nt pivot al study using colon oscop y as the refer ence metho d can be acces sed at the follo wing locat ion: www.e xactl abs.c om/re nas . Addit ional descr iptio n of the Colog uard test proce ss, warni ngs and preca ution s can be found at www.c ologu royal.c om. Not Available [facility] [address], [place], [address], 2024 09:55:34 02/14/2002/14/2025 TSH+F REE T4 TSH 1.360 uIU/m L 0.450- 4.500 normal Not Available [facility] ([facility]) [address] [facility] [place], [place], [address], 02/14/2025 06:07:44 02/14/2002/14/2025 TSH+F REE T4 T4,free(dire ct) 1.18 NG/dL 0.82-1 .77 normal Not Available [facility] ([facility]) [address] [facility] [place], [place], [address], 02/14/2025 06:07:44 02/14/2002/13/2025 CBC WITH DIFFE RENTI AL/PL ATELE T WBC 4.7 x10e3 /uL 3.4-10 .8 normal Not Available [facility] ([facility]) [address] [place], [address], 02/14/2025 06:07:45 02/14/2002/13/2025 CBC WITH DIFFE RENTI AL/PL ATELE T RBC 4.56 x10e6 /uL 4.14-5 .80 normal Not Available [facility] ([facility]) [address] [place], [address], 02/14/2025 06:07:45 02/14/2002/13/2025 CBC WITH DIFFE RENTI AL/PL ATELE T hemoglobin 13.7 g/dL 13.0-1 7.7 normal Not Available [facility] ([facility]) [address] [place], [address], 02/14/2025 06:07:45 02/14/2002/13/2025 CBC WITH DIFFE RENTI AL/PL ATELE T hematocrit 42.1 % 37.5-5 1.0 normal Not Available [facility] ([facility]) [address] [place], [address], 02/14/2025 06:07:45 02/14/2002/13/2025 CBC WITH DIFFE RENTI AL/PL ATELE T MCV 92 fL 79-97 normal Not Available [facility] ([facility]) [address] [place], [address], 02/14/2025 06:07:45 02/14/2002/13/2025 CBC WITH DIFFE RENTI AL/PL ATELE T MCH 30.0 pg 26.6-3 3.0 normal Not Available [facility] ([facility]) [address] [place] [address], [address], 02/14/2025 06:07:45 02/14/2002/13/2025 CBC WITH DIFFE RENTI AL/PL ATELE T MCHC 32.5 g/dL 31.5-3 5.7 normal Not Available [facility] ([facility]) [address] [place], [address], 02/14/2025 06:07:45 02/14/2002/13/2025 CBC WITH DIFFE RENTI AL/PL ATELE T RDW 12.5 % 11.6-1 5.4 Not Available [facility] ([facility]) [address] [place], [address], 02/14/2025 06:07:45 02/14/2002/13/2025 CBC WITH DIFFE RENTI AL/PL ATELE T platelets 189 x10e3 /uL 150-45 0 normal Not Available [facility] ([facility]) [address] [place], [address], 02/14/2025 06:07:45 02/14/2002/13/2025 CBC WITH DIFFE RENTI AL/PL ATELE T neutrophils 55 % not estab. normal Not Available [facility] ([facility]) [address] [place], [address], 02/14/2025 06:07:45 02/14/2002/13/2025 CBC WITH DIFFE RENTI AL/PL ATELE T lymphs 34 % not estab. normal Not Available [facility] ([facility]) [address] [place], [address], 02/14/2025 06:07:45 02/14/2002/13/2025 CBC WITH DIFFE RENTI AL/PL ATELE T monocytes 5 % not estab. normal Not Available [facility] ([facility]) [address] [place], [address], 02/14/2025 06:07:45 02/14/2002/13/2025 CBC WITH DIFFE RENTI AL/PL ATELE T eos 5 % not estab. normal Not Available [facility] ([facility]) [address] [place], [address], 02/14/2025 06:07:45 02/14/2002/13/2025 CBC WITH DIFFE RENTI AL/PL ATELE T basos 1 % not estab. normal Not Available [facility] ([facility]) [address] [facility], [place], [address], 02/14/2025 06:07:45 02/14/2002/13/2025 CBC WITH DIFFE RENTI AL/PL ATELE T immature cells LOT WORKER Not Available [facility] ([facility]) [address] [place], [address], 02/14/2025 06:07:45 02/14/2002/13/2025 CBC WITH DIFFE RENTI AL/PL ATELE T neutrophils (absolute) 2.5 x10e3 /uL 1.4-7. 0 normal Not Available [facility] ([facility]) [address] [place], [address], 02/14/2025 06:07:45 02/14/2002/13/2025 CBC WITH DIFFE RENTI AL/PL ATELE T lymphs (absolute) 1.6 x10e3 /uL 0.7-3. 1 normal Not Available [facility] ([facility]) [address] [place], [address], 02/14/2025 06:07:45 02/14/2002/13/2025 CBC WITH DIFFE RENTI AL/PL ATELE T monocytes(ab solute) 0.3 x10e3 /uL 0.1-0. 9 normal Not Available [facility] ([facility]) [address] [place], [address], 02/14/2025 06:07:45 02/14/2002/13/2025 CBC WITH DIFFE RENTI AL/PL ATELE T eos (absolute) 0.2 x10e3 /uL 0.0-0. 4 normal Not Available [facility] ([facility]) [address] [place], [address], 02/14/2025 06:07:45 02/14/2002/13/2025 CBC WITH DIFFE RENTI AL/PL ATELE T baso (absolute) 0.0 x10e3 /uL 0.0-0. 2 normal Not Available [facility] ([facility]) [address] [facility] [place], [place], [address], 02/14/2025 06:07:45 02/14/2002/13/2025 CBC WITH DIFFE RENTI AL/PL ATELE T immature granulocytes 0 % not estab. Not Available [facility] ([facility]) [address] [facility] [place], [place], [address], 02/14/2025 06:07:45 02/14/2002/13/2025 CBC WITH DIFFE RENTI AL/PL ATELE T immature grans (abs) 0.0 x10e3 /uL 0.0-0. 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 WORKER Not Available [facility] ([facility]) [address] [place], [address], 02/14/2025 06:07:45 02/14/2002/13/2025 CBC WITH DIFFE RENTI AL/PL ATELE T hematology comments: LOT WORKER Not Available [facility] ([facility]) [address] [place], [address], 02/14/2025 06:07:45 02/14/2002/14/2025 VITAM IN B12 AND FOLAT E vitamin B12 624 pg/mL 232-12 45 normal Not Available [facility] ([facility]) [address] [facility] [place], [place], [address], 02/14/2025 06:07:45 02/14/2002/14/2025 VITAM IN B12 AND FOLAT E folate (folic acid), serum >20.0 NG/mL >3.0 A serum folat e sukhi ntrat ion of less than 3.1 ng/mL is consi dered to repre sent clini daniel defic iency . Not Available [facility] ([facility]) [address] [facility] [place], [place], [address], 02/14/2025 06:07:45 02/14/2002/14/2025 CMP14 (REFL EX HGB A1C) glucose 102 mg/dL 70-99 above high normal Not Available [facility] ([facility]) [address] [place], [address], 02/20/2025 20:59:03 02/14/2002/14/2025 CMP14 (REFL EX HGB A1C) BUN 13 mg/dL 6-24 normal Not Available [facility] ([facility]) [address] [place], [address], 02/20/2025 20:59:03 02/14/2002/14/2025 CMP14 (REFL EX HGB A1C) creatinine 1.11 mg/dL 0.76-1 .27 normal Not Available [facility] ([facility]) [address] [place], [address], 02/20/2025 20:59:03 02/14/2002/14/2025 CMP14 (REFL EX HGB A1C) eGFR 77 mL/mi n/1.7 3 >59 normal Not Available [facility] ([facility]) [address] [place], [address], 02/20/2025 20:59:03 02/14/2002/14/2025 CMP14 (REFL EX HGB A1C) BUN/creatini ne ratio 12 9-20 normal Not Available [facility] ([facility]) [address] [place], [address], 02/20/2025 20:59:03 02/14/2002/14/2025 CMP14 (REFL EX HGB A1C) sodium 139 mmol/ L 134-14 4 normal Not Available [facility] ([facility]) [address] [place], [address], 02/20/2025 20:59:03 02/14/2002/14/2025 CMP14 (REFL EX HGB A1C) potassium 3.8 mmol/ L 3.5-5. 2 normal Not Available [facility] ([facility]) [address] [place], [address], 02/20/2025 20:59:03 02/14/2002/14/2025 CMP14 (REFL EX HGB A1C) chloride 103 mmol/ L 96-106 normal Not Available [facility] ([facility]) [address] [place], [address], 02/20/2025 20:59:03 02/14/2002/14/2025 CMP14 (REFL EX HGB A1C) carbon dioxide, total 20 mmol/ L 20-29 normal Not Available [facility] ([facility]) [address] [place], [address], 02/20/2025 20:59:03 02/14/2002/14/2025 CMP14 (REFL EX HGB A1C) calcium 9.1 mg/dL 8.7-10 .2 normal Not Available [facility] ([facility]) [address] [place], [address], 02/20/2025 20:59:03 02/14/20 25 02/14/2025 CMP14 (REFL EX HGB A1C) protein, total 7.2 g/dL 6.0-8. 5 normal Not Available [facility] ([facility]) [address] [place], [address], 02/20/2025 20:59:03 02/14/2002/14/2025 CMP14 (REFL EX HGB A1C) albumin 4.4 g/dL 3.8-4. 9 normal Not Available [facility] ([facility]) [address] [place], [address], 02/20/2025 20:59:03 02/14/2002/14/2025 CMP14 (REFL EX HGB A1C) globulin, total 2.8 g/dL 1.5-4. 5 Not Available [facility] ([facility]) [address] [place], [address], 02/20/2025 20:59:03 02/14/2002/14/2025 CMP14 (REFL EX HGB A1C) bilirubin, total 0.4 mg/dL 0.0-1. 2 normal Not Available [facility] ([facility]) [address] [place], [address], 02/20/2025 20:59:03 02/14/2002/14/2025 CMP14 (REFL EX HGB A1C) alkaline phosphatase 44 IU/L 47-123 below low normal Not Available [facility] ([facility]) [address] [place], [address], 02/20/2025 20:59:03 02/14/2002/14/2025 CMP14 (REFL EX HGB A1C) AST (SGOT) 23 IU/L 0-40 normal Not Available [facility] ([facility]) [address] [place], [address], 02/20/2025 20:59:03 02/14/2002/14/2025 CMP14 (REFL EX HGB A1C) ALT (SGPT) 20 IU/L 0-44 normal Not Available [facility] ([facility]) [address] [facility] [place], [address], 02/20/2025 20:59:03 02/14/2002/14/2025 LIPID PANEL cholesterol, total 211 mg/dL 100-19 9 above high normal Not Available [facility] ([facility]) [address] [place], [address], 02/20/2025 20:59:05 02/14/2002/14/2025 LIPID PANEL triglyceride s 66 mg/dL 0-149 normal Not Available [facility] ([facility]) [address] [place], [address], 02/20/2025 20:59:05 02/14/2002/14/2025 LIPID PANEL HDL cholesterol 66 mg/dL >39 normal Not Available [facility] ([facility]) [address] [place], [address], 02/20/2025 20:59:05 02/14/2002/14/2025 LIPID PANEL VLDL cholesterol daniel 12 mg/dL 5-40 Not Available [facility] ([facility]) [address] [place], [address], 02/20/2025 20:59:05 02/14/2002/14/2025 LIPID PANEL LDL chol calc ([facility]) 133 mg/dL 0-99 above high normal Not Available [facility] ([facility]) [address] [place], [address], 02/20/2025 20:59:05 02/14/2002/14/2025 LIPID PANEL LDL calc comment: 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 Not Available [facility] [address] [facility], [place], [address], 02/20/2025 20:59:05 02/14/20 25 02/13/2025 HEMOG LOBIN A1C hemoglobin A1C 5.9 % 4.8-5. 6 above high normal Predi abete s: 5.7 - 6.4 Diabe any: >6.4 Glyce yanely contr ol for adult s with diabe any: <7.0 Not Available [facility] ([facility]) [address] [facility] [place], [place], [address], 02/20/2025 20:59:06 06/10/19 23 06/10/2022 XR, cervi daniel spine Examin ation: Cervic al spine series perfor med on 023. Histor y: Reason : parest hesia of skin, numbne ss from neck to should er, r o arthri tis Findin gs: Latera l, swimme r's, AP, and odonto id views of the cervic al spine are submit maksim. Evalua tion extend s from the occipu t throug h the T1 verteb ral level. No fractu res are seen. Multil evel disc space narrow ing and degene rative loss of height is demons trated extend ing from the C3 level throug h the thorac ic inlet. The atlant oaxial articu lation is preser lance. The prever tebral soft tissue s are within normal limits . IMPRES OTTO: Multil evel degene rative disc diseas e. WSN: [id number] Orderi Physic jack: Moni Guzman NP Dictat ed By: Trang Lancaster MD Dictat ed Date/T daphney: 11:55 a Review ed By: Trang Lancaster MD Signed By: Trang Lancaster MD Signed Date/T daphney: 11:55 am Transc ribed By: KATHE Transc ribed Date/T daphney: 11:53 am Patien t Class: Outpat ient [facility] (Outpt Imaging) [address], [place], [address], 06/24/2022 12:21:25 09/14/19 23 09/06/2022 home sleep study No observ ation record ed. [facility] [address] [place], [address], 09/27/2022 08:47:17 Result Notes Documentation Provider Name and Address Organization Details Recorded Time Xr, Cervical Spine : Examination: Cervical spine series performed on 06/10/2022. History: Reason: paresthesia of skin, numbness from neck to shoulder, r o arthritis Findings: Lateral, swimmer's, AP, and odontoid views of the cervical spine are submitted. Evaluation extends from the occiput through the T1 vertebral level. No fractures are seen. Multilevel disc space narrowing and degenerative loss of height is demonstrated extending from the C3 level through the thoracic inlet. The atlantoaxial articulation is preserved. The prevertebral soft tissues are within normal limits. IMPRESSION: Multilevel degenerative disc disease. 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 Not Available [facility] 2 13:16:02 Insomnia 932254278 Active Not Available [facility] 2 13:16:02 Carpal tunnel syndrome 04425050 Active Not Available [facility] 2 13:16:02 Acute sinusiti s 14671136 Completed 200811/11/2013 RECORDED 08/15/19 09 9:27AM BY MAGUI GOLDEN MA, EMILIEATI ON/ADDEN DUM Not Available [facility] 4 14:40:47 Cough 25443894 Completed 200811/11/2013 RECORDED 08/15/19 09 9:27AM BY MAGUI GOLDEN MA, EVERETTE ON/ADDEN DUM Not Available [facility] 4 14:40:48 Acute sinusiti s 92876384 Completed 200812/01/2013 RECORDED 08/15/19 09 9:27AM BY MAGUI GOLDEN MA, EMILIEATI ON/ADDEN DUM Not Available [facility] 4 06:48:47 Cough 09459068 Completed 200812/01/2013 RECORDED 08/15/19 09 9:27AM BY MAGUI GOLDEN MA, EMILIEATI ON/ADDEN DUM Not Available [facility] 4 06:48:47 General examinat ion of patient Completed 200911/11/2013 RECORDED 01/07/20 10 12:06PM BY EVERETTE FLOR ON/ADDEN DUM Not Available [facility] 4 14:40:48 Shoulder joint pain 568851971 Completed 200911/11/2013 RECORDED 01/07/20 10 12:06PM BY EVERETTE FLRO ON/ADDEN DUM Not Available [facility] 4 14:40:48 Sprains and strains of joints and adjacent muscles Completed 200911/11/2013 RECORDED 01/07/20 10 12:06PM BY CONNIE TELLES, ANNOTATI ON/ADDEN DUM Not Available [facility] 4 14:40:48 General examinat ion of patient Completed 200912/01/2013 RECORDED 01/07/20 10 12:06PM BY CONNIE TELLES, ANNOTATI ON/ADDEN DUM Not Available [facility] 4 06:48:47 Shoulder joint pain 681692365 Completed 200912/01/2013 RECORDED 01/07/20 10 12:06PM BY CONNIE TELLES, ANNOTATI ON/ADDEN DUM Not Available [facility] 4 06:48:47 Sprains and strains of joints and adjacent muscles Completed 200912/01/2013 RECORDED 01/07/20 10 12:06PM BY CONNIE TELLES, ANNOTATI ON/ADDEN DUM Not Available [facility] 4 06:48:47 Administ ration of bacteria l and viral vaccine Completed 200911/11/2013 RECORDED 01/14/20 10 10:36AM BY CONNIE BAH, OFFICE VISIT Not Available [facility] 4 14:40:48 Administ ration of bacteria l and viral vaccine Completed 200912/01/2013 RECORDED 01/14/20 10 10:36AM BY CONNIE BAH, OFFICE VISIT Not Available [facility] 4 06:48:47 Hyperlip idemia 22053083 Completed 201211/11/2013 RECORDED 05/13/19 13 8:32AM BY MAGUI GOLDEN MA, ANNOTATI ON/ADDEN DUM Megan neumann MA - [facility] 7 15:18:54 Digestiv e symptom 439839963 Completed 201211/11/2013 RECORDED 07/02/19 13 10:47AM BY STEVEN ESCALANTE MA, ANNOTATI ON/ADDEN DUM Not Available [facility] 4 14:40:48 Screenin g for malignan t neoplasm of colon Completed 201211/11/2013 RECORDED 07/02/19 13 10:47AM BY STEVEN ESCALANTE MA, ANNOTATI ON/ADDEN DUM Not Available [facility] 4 14:40:48 Digestiv e symptom 023068832 Completed 201212/01/2013 RECORDED 07/02/19 13 10:47AM BY STEVEN ESCALANTE MA, ANNOTATI ON/ADDEN DUM Not Available [facility] 4 06:48:47 Screenin g for malignan t neoplasm of colon Completed 201212/01/2013 RECORDED 07/02/19 13 10:47AM BY STEVEN ESCALANTE MA, ANNOTATI ON/ADDEN DUM Not Available [facility] 4 06:48:47 Patient status finding [id number] Completed 201211/11/2013 RECORDED 11/30/19 13 3:10PM BY STEVEN ESCALANTE MA, ANNOTATI ON/ADDEN DUM Not Available [facility] 4 14:40:48 Adult health examinat ion Completed 201211/11/2013 RECORDED 11/30/19 13 3:10PM BY STEVEN ESCALANTE MA, ANNOTATI ON/ADDEN DUM Not Available [facility] 4 14:40:48 Onychomy cosis due to dermatop hyte 005112193 Completed 201211/11/2013 RECORDED 11/30/19 13 3:10PM BY STEVEN ESCALANTE MA, ANNOTATI ON/ADDEN DUM Not Available [facility] 4 14:40:48 Patient status finding 749559702 Completed 201212/01/2013 RECORDED 11/30/19 13 3:10PM BY STEVEN ESCALANTE MA, ANNOTATI ON/ADDEN DUM Not Available [facility] 4 06:48:47 Adult health examinat ion Completed 201212/01/2013 RECORDED 11/30/19 13 3:10PM BY STEVEN ESCALANTE MA, ANNOTATI ON/ADDEN DUM Not Available [facility] 4 06:48:47 Onychomy cosis due to dermatop hyte 666320549 Completed 201212/01/2013 RECORDED 11/30/19 13 3:10PM BY STEVEN ESCALANTE MA, ANNOTATI ON/ADDEN DUM Not Available [facility] 4 06:48:47 Cellulit is 385632360 Completed 201308/18/2014 RECORDED 08/14/19 14 8:46AM BY RAJNI VINES MA, OFFICE VISIT Robin neumann [facility] 5 20:10:44 Backache 172369987 Completed 201310/12/2014 RECORDED 08/14/19 14 8:50AM BY KIT ULRICH PA-C, OFFICE VISIT CONNIE Gerard [facility] 5 13:35:04 Tobacco dependen ce syndrome 12516135 Active 2013 Not Available [facility] 2 13:16:02 Urinary tract obstruct ion 4593587 Active 2013 Not Available [facility] 2 13:16:02 Benign prostati c hyperpla heaven 490474258 Active 2013 Not Available [facility] 2 13:16:02 Lower urinary tract symptoms 963643642 Completed 201310/12/2014 IMPRESSI ON: MAY BE MILD AND FACTOR; RECORDED 08/14/19 14 8:46AM BY RAJNI VINES MA, OFFICE VISIT CONNIE Gerard [facility] 5 13:35:04 Impotenc e of organic origin Active 2013 Not Available [facility] 2 13:16:02 Hyperlip idemia 24048790 Active 2013 Not Available [facility] 2 13:16:02 Impacted cerumen 05967302 Completed 201308/18/2014 RECORDED 08/14/19 14 8:46AM BY RAJNI VINES MA, OFFICE VISIT Robin neumann MA [facility] 5 20:10:44 Patient status finding 448716481 Completed 201308/18/2014 RECORDED 08/14/19 14 8:46AM BY RAJNI VINES MA, OFFICE VISIT Robin neumann, [facility] 5 20:10:44 Major depressi ve disorder 069477856 Active 2020 Not Available [facility] 2 13:16:02 COVID-19 152269991 Completed 202001/27/2021 Removal Reason: Problem marked historic al by user shimon from the COVID-19 watch flag Josue Sánchez, [facility] [address] [address], [place], [address] , [facility] 1 10:22:30 Foot pain 74353278 Active 2021 Josue Sánchez, [facility] [address] [address], [place], [address] , [facility] 2 10:48:15 Primary erectile dysfunct ion 315138354 Active 2021 Aaron Banks MA null, [facility] 2 14:09:30 Impaired fasting glycemia 330797704 Active 2021 Josue Sánchez, [facility] [address] [address], [place], [address] , [facility] 2 10:49:54 Fatigue 44529328 Active 2021 Josue Sánchez, [facility] [address] [address], [place], [address] , [facility] 2 10:49:54 Carpal tunnel syndrome 50605080 Active 2021 Josue Sánchez, [facility] [address] [address], [place], [address] , [facility] 2 10:49:54 Erectile dysfunct ion 731675738 Active 2021 [facility] [address] [facility] [address] [facility], [place], [address] , [facility] 2 10:57:44 Lumbar radiculo vincent 530749366 Active 2021 Josue Sánchez [facility] [address] [address], [place], [address] , [facility] 2 10:58:27 Elevated blood-pr essure reading without diagnosi s of hyperten otto 126757829 Active 2021 Josue Sánchez, RODNEY [address] [address], [place], [address] , [facility] 2 11:04:53 Apnea 5360484 Active 2021 RODNEY Iverson [address] [address], [place], [address] , [facility] 2 11:48:00 Paresthe heaven 81475861 Active 2022 RODNEY Iverson [address] [address], [place], [address] , [facility] 3 09:49:39 Snoring 91823775 Active 2022 RODNEY Iverson [address] [address], [place], [address] , [facility] 3 09:49:39 Neck pain 28255619 Active 2022 RODNEY Iverson [address] [address], [place], [address] , [facility] 3 09:49:39 Thoracic back pain 182107799 Active 2022 RODNEY Iverson [address] [address], [place], [address] , [facility] 3 09:56:22 Obstruct kendra sleep apnea syndrome 75206395 Active 2022 Josue Sánchez, [facility] [address] [facility] [address], [facility] [place], [address] , [facility] 3 13:17:01 Problem Notes None recorded. Procedures Surgical History Date Name Laterality Status Provider Name and Address Organization Details Recorded Time 7 Unlisted procedure shoulder completed Megan Landry [facility] 01/08/2017 13:05:05 1 [facility] 02/05/2020 14:02:58 1 biopsy completed [facility] 02/05/2020 13:33:46 3 Vasectomy completed Magui Honecyutt-Watson farooq, [facility] 05/18/2020 15:46:24 arthroscopy of shoulder completed Magui farooq, [facility] 02/08/2023 09:21:32 Imaging Results None recorded. Procedure Notes None recorded. Medical Equipment None Reported. Allergies Allergen ID Allergen Name Allergen Category Reaction Reaction Severity Criticality Documentation Date Start Date Code Code System Note Provider Name and Address Organization Details Recorded Time 22849 No known allergy (situatio n) Not available Not available Not available Not available 11/04/20132008 93386 6003 SNOMED COMME NT: RECOR DED 08/14 9:27A M BY BA JAUREGUI MA, OFFIC E VISIT ; Not Available [facility] 4 13:27:10 No known drug allergies Medications [...] RECORDED 03/01/20 07 11:00AM BY FLASH CARNEY, MEDICATI ON AUTO-DUSTIN CTIVATIO N; Not Available Not Available Not Available Fish Oil QD 06/02 completed RECORDED 06/02/19 12 1:01PM BY VIJAYA GOETZ I ANNOTATI ON/ANGELY DUM; Not Available Not Available Not Available sodium fluoride 1.1 % dental paste BRUSH TWICE DAILY. NO EATING/D RINKING FOR [address] A SMALL AMOUNT OF PASTE ON FLOSS AND FLOSS BACK TEETH 02/08 completed Not Available Not Available Not Available Vitals Date Recorded Body height Body mass index (BMI) Body weight Oxygen saturation Heart rate Body temperature Systolic And Diastolic Provider Name and Address Organization Details Last Updated DateTime 3 172.72 cm 39.2 kg/m2 450375. 83 g 99 % 70 /min 97.6 [degF] 123/76 mm[Hg] Luzma Villa MA [facility] 3 10:11:06 Date Recorded Systolic And Diastolic Provider Name and Address Organization Details Last Updated DateTime 08/24/2022 130/68 mm[Hg] Josue Sánchez [facility] [address], [address], [facility] 08/24/2022 10:05:37 Date Recorded Body height Body weight Body mass index (BMI) Heart rate Body temperature Oxygen saturation Systolic And Diastolic Provider Name and Address Organization Details Last Updated DateTime 3 172.72 cm 856893. 59 g 40.1 kg/m2 69 /min 97.8 [degF] 97 % 141/89 mm[Hg] Yessica Silveira MA [facility] 3 09:44:40 Date Recorded Body height Body mass index (BMI) Body weight Heart rate Oxygen saturation Body temperature Systolic And Diastolic Provider Name and Address Organization Details Last Updated DateTime 3 172.72 cm 35.1 kg/m2 332471. 84 g 73 /min 97 % 97.1 [degF] 104/60 mm[Hg] Magui hannon MA [facility] 3 09:19:25 Date Recorded Body height Body mass index (BMI) Body weight Heart rate Oxygen saturation Body temperature Systolic And Diastolic Provider Name and Address Organization Details Last Updated DateTime 4 172.72 cm 37.7 kg/m2 188098. 91 g 67 /min 96 % 97.3 [degF] 127/80 mm[Hg] Donna gonzales MA [facility] 4 10:18:10 Date Recorded Body height Body mass index (BMI) Body weight Heart rate Oxygen saturation Body temperature Systolic And Diastolic Provider Name and Address Organization Details Last Updated DateTime 5 172.72 cm 38 kg/m2 316625. 09 g 66 /min 97 % 97.4 [degF] 108/60 mm[Hg] Magui hannon MA [facility] 5 09:58:31 Social History Question Answer Notes LastModified by Organizat ion Details LastModified Time Tobacco Smoking Status Never [facility]27[facility]2020 15:41:51 Do You Have An Advance Directive? Yes [facility] Information not available 02/02/2022 Is Blood Transfusion Acceptable In An Emergency? Yes Information not available 12/23/2015 What Is Your [...] Take Precautions To Prevent Distracted Driving? Yes [email or web address] Information not available 12/23/2015 How Often Do You Need To Have Someone Help You When You Read Instructions, Pamphlets, Or Other Written Material From Your Doctor Or Pharmacy? Never [email or web address] Information not available 12/23/2015 Have You Served In The ? No [email or web address] Information not available 01/11/2018 Have You Or Anyone In Your Household Had Any Of The Following Symptoms In The Last 14 Days: Sore Throat, Cough, Chills, Body Aches For Unknown Reasons, Shortness Of Breath For Unknown Reasons, Loss Of Smell, Loss Of Taste, Fever At Or Greater Than 100 Degrees Fahrenheit? No [email or web address] Information not available 01/27/2020 Are You Or Anyone In Your Household A Health Care Provider Or Emergency Responder? No [email or web address] Information not available 01/27/2020 To The Best [...] Do You Use Protection During Sex? No [email or web address] Information not available 12/23/2015 Do You Use Your Seat Belt Or Car Seat Routinely? Yes Information not available 01/27/2021 Seat Belts Used Routinely Yes Information not available 02/02/2022 Are You Sexually Active? Yes Kaci Information not available 02/08/2023 Smoke Alarm In Home Yes Information not available 02/02/2022 Do You Have Smoke And Carbon Monoxide Detectors In Your Home? Yes [email or web address] Information not available 01/27/2021 Are You Passively [...] used smokeless tobacco? Never used smokeless tobacco [email or web address] Information not available 01/27/2020 Are you currently employed? Yes Information not available 10/12/2014 Are you able to walk independently without assistance or assistive devices? [email or web address] Information not available 02/02/2022 Are you able to care for yourself independently? Yes Information not available 10/12/2014 What is your occupation? [employer] Information not available 02/02/2022 Do you or [...] Father Harmful pattern of use of alcohol [email or web address] Not available 2020 09:49:14 Unspecified Relation Harmful pattern of use of alcohol [email or web address] Not available 2021 10:35:07 Unspecified Relation Alzheimer's disease Not available 2020 09:49:15 Unspecified Relation Substance abuse [email or web address] Not available 2020 09:49:15 Unspecified Relation Multiple sclerosis matern al great uncle [email or web address] Not available 02/13/2025 10:01:13 Paternal Uncle Alzheimer's disease [email or web address] Not available 2020 09:49:15 Paternal Uncle Dementia Not available 01/28/20 09:49:15 Maternal Aunt Multiple sclerosis [email or web address] Not available 02/13/2025 10:01:13 Medical History Condition Response Coronary Artery Disease N Gout N Other Y Blood Diseases N Kidney Stones N Hyperthyroidism N Breast Cancer N mrsa exposure N Lung Disease N Hypothyroidism N Depression Y COPD N Defects or Inherited Disease N Developmental or Behavioral Disorders N Breast Problem N Anesthesia Complications N Headaches/Migraines N Varicose Veins N Anxiety Disorder N Muscle, Joint, or Bone Problems Y Obesity Y Vision or Eye Problems N Arthritis Y Head Injury/Concussion N Infertility N Polyps N Mental Disorder N Congenital Anomalies N Acid Reflux (GERD) N Cancer N Stroke N ADHD N Endometriosis N High Cholesterol Y Liver Disease N Headaches N Fibromyalgia N Kidney Disease N Heart Problems N Ear or Hearing Problems Y Hospitalizations N Thyroid Problems N GI Problems N Developmental Delay N Acne Y Eating Disorder Y Skin Problems N Anemia N Constipation N Bladder Problems N Mental Illness N Diabetes N Ovarian Cancer N Bedwetting N Blood Transfusions N Heart Problems/Murmur N Seizures/Epilepsy N Tuberculosis N AIDS/HIV N Congestive Heart Failure (CHF) N Eczema N Abuse/Domestic Violence N Diverticulitis N Asthma N Allergies Y Reflux/GERD N Hepatitis N Heart Disease N Pulmonary Embolism N Hypertension N Chicken Pox N Autism Spectrum Disorder (ASD) N Osteoporosis N Immunizations Vaccine Type Date Status Note Provider Name and Address Organization Details Recorded Time Influenza, split virus, trivalent, PF 02/14/20 25 completed Magui farooq MA null, [facility] 02/13/2025 12:40:54 COVID-19, mRNA, LNP-S, PF, 30 mcg/0.3 mL dose 08/15/19 21 completed Nae neumann [facility] 05/04/2021 15:57:22 COVID-19, mRNA, LNP-S, PF, 30 mcg/0.3 mL dose 09/05/19 21 completed Naemaryann neumann [facility] 05/04/2021 15:57:22 COVID-19, mRNA, LNP-S, PF, 30 mcg/0.3 mL dose 04/26/19 22 completed CONNIE Morocho, [facility] 05/17/2022 10:02:18 COVID-19, mRNA, LNP-S, bivalent, PF, 30 mcg/0.3 mL dose 02/21/20 22 completed CONNIE Morocho, [facility] 05/17/2022 10:11:26 Influenza, MDCK, quadrivalent, PF 02/21/20 22 completed CONNIE Morocho, [facility] 05/17/2022 10:11:26 Influenza, split virus, quadrivalent, PF 01/09/20 17 cancelled patient objection Not Available [facility] 05/10/[facility] 02:22:11 Tdap 01/27/20 20 completed Josue S[facility]chez, [facility] [address] [facility] [address], [place], [address], [facility] 01/27/2020 16:04:11 Influenza, split virus, quadrivalent, PF 02/09/20 23 completed Josue Sánchez, [facility] [address] [facility] [address], [place], [address], [facility] 02/08/2023 10:12:56 Td (adult), 2 Lf tetanus toxoid, preservative free, adsorbed 12/18/19 01 completed Nae William null, [facility] 05/04/2021 15:57:22 Tdap 01/14/20 10 completed Nae William null, [facility] 05/04/2021 15:57:22 Past Encounters Encounter ID Performer Location Encounter Start Date Encounter Closed Date Diagnosis/Indication Diagnosis SNOMED-CT Code Diagnosis ICD10 Code Diagnosis IMO Codes Diagnosis Note [id number] [facility] [address] [facility] [place] [address] 12/03/2006 00:00:00 [id number] auto[employer]Comm erce [address] [facility] [place] [address] 12/03/2006 00:00:00 [id number] [address] [facility] [address] [place] [address] 12/03/2006 00:00:00 [id number] [facility] erce [address] [place] [address] 12/03/2006 00:00:00 [id number] [facility] erce [address] [facility] [address] [place] [address] 03/12/2007 00:00:00 [id number] [employer] [facility] [address] [facility] [address] [place] [address] 03/12/2007 00:00:00 [id number] [employer] erce [address] [facility] [address] [place] [address] 03/12/2007 00:00:00 [id number] auto[employer] erce [address] [facility] [place] [address] 05/22/2008 00:00:00 [id number] [employer] erce [address] [facility] [address] [place] [address] 08/14/2008 00:00:00 [id number] [employer] er[employer] [address] [facility] [place] [address] 08/14/2008 00:00:00 [id number] [employer] erce [address] [facility] [place] [address] 08/14/2008 00:00:00 [id number] [employer] [address] [facility] [place] [address] 08/14/2008 00:00:00 [id number] auto[employer] erce [address] [facility] [place] [address] 01/13/2010 00:00:00 [id number] [employer] [address] [facility] [place] [address] 01/13/2010 00:00:00 [id number] [employer] erce [address] [facility] [address] [place] [address] 01/13/2010 00:00:00 [id number] [facility] [address] [place] [address] 04/12/2010 00:00:00 [id number] [facility] [facility] [address] [place] [address] 04/12/2010 00:00:00 [id number] [employer] er[employer] [address] [place] [address] 05/01/2011 00:00:00 [id number] auto[employer] erce [address] [facility] [address] [place] [address] 06/02/2011 00:00:00 [id number] auto[employer] erce [address] [facility] [address] [place] [address] 06/02/2011 00:00:00 [id number] auto[employer] erce [address] [facility] [address] [place] [address] 06/02/2011 00:00:00 [id number] [employer] erce [address] [facility] [address] [place] [address] 07/01/2012 00:00:00 [id number] [employer] erce [address] [facility] [address] [place] [address] 07/01/2012 00:00:00 [id number] auto[employer] erce [address] [facility] [address] [place] [address] 07/01/2012 00:00:00 [id number] auto[employer]Comm erce [address] [facility] [place] [address] 11/29/2012 00:00:00 [id number] auto[employer]Comm erce [address] [facility] [address] [place] [address] 08/13/2013 00:00:00 [id number] auto[employer]Comm erce [address] [facility] [address] [place] [address] 08/13/2013 00:00:00 [id number] auto[employer]Comm erce [address] [facility] [place], [place] [address] 08/13/2013 00:00:00 [id number] auto[employer] erce [address] [facility] [place], [place] [address] 08/13/2013 00:00:00 [id number] Robin Angeles [facility] Main Office [address] [address] [place] [address] 01/20/2014 14:50:24 01/20/2014 15:34:06 Neoplasm of uncertain behavior of skin 55742883 [id number] Robin Gravesmelvi [facility] Main Office [address] [address] [place] [address] 08/19/2014 09:23:32 08/19/2014 10:14:09 Major depressive disorder 901063528 he is open to ssri. f/u 2 months. 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 [id number] Aaron roman MD Main Office [address] [address] [place] [address] 10/12/2014 13:40:31 10/12/2014 14:57:36 Adult health examination 177786597 Major depr essive disorder 307817533 pt will see therapist at [facility] [facility] at work/ plan to increase SSRI for now Insomnia 828287382 Impotence of organic origin 514327618 Hyperlipidemia 68332377 Benign pro static hyperplasia 262896660 Body mass index 30+ - obesity 583353782 Carpal aakash luis eduardo syndrome 59167178 [id number] Mishel Wilhelm PA-C Main Office [address] [facility] [address] [place] [address] 12/23/2015 09:01:25 12/23/2015 10:36:53 Body mass index 30+ - obesity 288385039 Z68.37 Hearing loss 26749559 H9 1.93 normal audiogram, mildly abnl ear exam - pt requests ENT eval Low back pain 126581403 M54.5 with radicular symptoms down RLE (sensory>> motor) Numbness of foot 2996504 00 R20.0 right foot Adult heal th examination 885424626 Z00.00 [id number] Aaron roman MD Main Office [address] [facility] [address] [facility] [place] [address] 01/08/2017 12:45:09 01/08/2017 14:35:19 Adult health examination 214488041 Z00.00 Vaccine de clined by patient 9538447171 02 Z28.20 Screening for malignant neoplasm of colon 431209446 Z12.11 Prostate s pecific antigen above reference range 832684217 R97.20 Impaired f asting glycemia 280867905 R73.01 Hyperlipidemia 34786342 E78.5 Primary er ectile dysfunction 068287208 N52.9 [id number] RODNEY Iverson Main Office [address] [place] [address] 01/11/2018 09:03:00 01/11/2018 10:06:53 Adult health examination 766139421 Z00.00 HM UTD Hyperlipidemia 35580046 E78.5 labs were ordered at last PE but not done by patient, encouraged to get labs today Primary er ectile dysfunction 572578850 N52.9 he wishes to have testostero ne checked. he is wondering about OTC testostero ne supplement s which I cannot speak to as we do not prescribe these and it is not likely clear what ingredient s are in them in what amounts. Prostate s pecific antigen above reference range 352558571 R97.20 Impaired f asting glycemia 694735717 R73.01 Vaccine de clined by patient 7879696748 02 Z28.20 Screening for malignant neoplasm of colon 151512743 Z12.11 due for colonoscop y Poor concentration 51932 005 R41.840 he notes he would like to get rxs for adderall for ADD, he has self diagnosed . he has been taking 30mg daily that he got from a friend of a friend that has a prescripti on and he feels it is helping him. I discussed the dangers of taking someone else's meds- especially a controlled substance. I also informed him he will not get a rx from us unless he is formally diagnosed, he will need to have formal eval, referral to ADD center provided. [id number] Bro Dela Cruz MD Main Office [address] [facility] [address] [facility] [address] 01/17/2019 14:41:54 01/17/2019 15:51:37 Adult health examination 990126565 Z00.00 UTD, labs ordered. Hyperlipidemia 91642288 E78.5 labs were ordered at last PE but not done by patient, encouraged to get labs today Primary er ectile dysfunction 551138521 N52.9 he wishes to have testostero ne re- checked. he notes he feels viagra has become less effective. He is on the highest dose and i did explain he should not take more than prescribed . He is taking OTC testostero ne supplement s which I cannot speak to as we do not prescribe these and it is not likely clear what ingredient s are in them in what amounts, tis was discussed at last visit and he verbalizes understand ing. Prostate s pecific antigen above reference range 301986059 R97.20 Impaired f asting glycemia 650249813 R73.01 Vaccine de clined by patient 4746039208 02 Z28.20 Screening for malignant neoplasm of colon 671678141 Z12.11 due for colonoscop y Carpal aakash luis eduardo syndrome 22297226 G56.02 declines wrist splint or referral to hand surgery Osteoarthr itis of knee 331173816 M17.0 will order bilateral XR, he declines PT ro referral at this time Bilateral hearing loss 27226115 H91.93 he still has difficulty hearing, will refer to audiology Onychomycosis 613225359 B35.1 [id number] Bro Dela Cruz MD Main Office [address] [address] [place] [address] 01/27/2020 15:36:51 01/27/2020 16:18:21 Adult health examination 092934409 Z00.00 UTD, life scan cholestero l mildly elevated. blood sugar high will recheck labs Hyperlipidemia 71583162 E78.5 Major depr essive disorder 342571822 F32.0 Benign pro static hyperplasia 689022941 N40.1 Administra tion of viral vaccine 19654186 Z23 Impaired f asting glycemia 596783512 R73.01 Fatigue 44785927 R53.83 [id number] Raghu Manning MD Telehe[facility] h [address] 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 9 recommend probiotics while on abx [id number] Bro Dela Cruz MD Main Office [address] [address] [place] [address] 01/27/2021 09:36:10 01/27/2021 10:32:02 Adult health examination 166795857 Z00.00 HM UTD, due for colo, will do cologuard Hyperlipidemia 02428744 E78.5 Benign pro static hyperplasia 237988647 N40.1 Impaired f asting glycemia 418208803 R73.01 Fatigue 60157055 R53.83 Insomnia 406903339 G47.0 0 taking trazodone, has just increased to 100mg. Screening for malignant neoplasm of colon 454465339 Z12.11 Z12.12 due for colonoscop y Carpal aakash luis eduardo syndrome 38674493 G56.01 declines wrist splint or referral to hand surgery [id number] Bro Dela Cruz MD Main Office [address] [address] [place] [address] 02/02/2022 10:34:53 02/02/2022 11:32:50 Adult health examination 296434007 Z00.00 HM UTD, due for colo, will do cologuard Hyperlipidemia 29188041 E78.5 Benign pro static hyperplasia 116345512 N40.1 Impaired f asting glycemia 314469098 R73.01 Fatigue 07606748 R53.83 Insomnia 718068970 G47.0 0 needs refill, not sleeping well. Screening for malignant neoplasm of colon 073452075 Z12.11 Z12.12 due for colonoscop y Erectile dysfunction 860 784017 F52.21 Lumbar radiculopathy 128 340866 M54.16 sx ongoing for years, worsening recently, right leg numbness/ tingling and weakness. did see neurology and had EMG, needs MRI Elevated blood-pressure reading without diagnosis of hypertension 720098168 R03.0 Decrease sodium, caffeine and alcohol intake, hydration, will also order sleep study Apnea 1631230 R06.81 feeling unrested in the mornings, bp is elevated. snoring at night, will check sleep study [id number] Salome clifford MD Main Office [address] [facility] [address] [facility] [place] [address] 05/17/2022 09:55:58 05/17/2022 11:12:18 Major depressive disorder 798974859 F32.1 stable, offered meds, he will consider but not now, taking meds for insomnia. Suggested therapy Paresthesia 92769676 R20 .2 Paresthesi a of neck and face (superfici al) but not down arm. > possible pinched nerve, will check labs and xray, consider PT. Neuro evaluation is discussed, wants to wait for other tests first. Warned to call laurie or proceed to ED if any slurring of words weakness, vision change Pt agrees. He has visit coming up with Josue and will followup then, sooner if needed. Snoring 08652100 R06.83 STOP BANG = 6, will do home sleep study to evaluated, this may make him tired in the day Neck pain 73124316 M54.2 Heat , stretching , offered PT [id number] Bro Dela Cruz MD Main Office [address] [facility] [address] [facility] [place] [address] 08/24/2022 09:29:15 08/24/2022 10:12:08 Elevated blood-pressure reading without diagnosis of hypertension 951626207 R03.0 Decrease sodium, caffeine and alcohol intake, hydration. recheck was better. continue lifestyle modificati ons Insomnia 275902836 G47.0 0 Has sleep study scheduled 09/05/22 at 9:45am Paresthesia 60157509 R20 .2 Paresthesi a of neck and face (superfici al) but not down arm. XR shows multilevel degenerati on. he does not want interventi on at this time. Neck pain 63254861 M54.2 Heat, stretching Snoring 96623880 R06.83 STOP BANG = 6 sleep study pending Thoracic back pain 23408 8004 M54.6 sharp mid back pain that impairs movement for 3-5 mins. He declines XR today. [id number] Bro Dela Cruz MD Main Office [address] [facility] [address] [place] [address] 02/08/2023 09:04:38 02/08/2023 09:49:02 Adult health examination 629590511 Z00.00 HM UTD, cologuard done in 2021- negative. will check PSA. Flu vaccine given today. Needs infl uenza immunization 307187995 Z23 Hyperlipidemia 40317268 E78.5 Benign pro static hyperplasia 810362313 N40.1 Impaired f asting glycemia 173427329 R73.01 Fatigue 70624970 R53.83 Insomnia 873755567 G47.0 0 needs refill, not sleeping well. Screening for malignant neoplasm of colon 864278357 Z12.11 Z12.12 cologuard was done in 2021- negative- due 2024 Elevated blood-pressure reading without diagnosis of hypertension 950961624 R03.0 BP normal today. Lumbar radiculopathy 128 089118 M54.16 stable sx. Obstructiv e sleep apnea syndrome 17512827 G47.33 had sleep study but appt was never scheduled with sleep medicine. He has appt upcoming. [id number] Bro Dela Cruz MD Main Office [address] [facility] [address] [place] [address] 02/13/2024 10:06:13 02/13/2024 10:56:52 Adult health examination 637588726 Z00.00 UTD, cologuard done in 2021- negative, due this year. will check PSA. Hyperlipidemia 82419566 E78.5 Benign pro static hyperplasia 688396879 N40.1 Impaired f asting glycemia 679559703 R73.01 Fatigue 22838950 R53.83 Insomnia 385753930 G47.0 0 needs refill, not sleeping well. Screening for malignant neoplasm of colon 589026216 Z12.11 cologuard was done in 2021- negative- due 2024 Elevated blood-pressure reading without diagnosis of hypertension 589401955 R03.0 BP normal today. Lumbar radiculopathy 128 141820 M54.16 stable sx, improved, is walking 3-5 miles per day. Obstructiv e sleep apnea syndrome 19119064 G47.33 sleep study confirmed but he has not tried CPAP, does not think he wOuld wear mask. encouraged to consider alternate mask options and try CPAP Erectile dysfunction 860 776243 F52.21 Will trial tadalafil to see if it works better than sildenafil . [id number] Bro Dela Cruz MD Main Office [address] [facility] [address] [place] [address] 02/13/2025 09:42:33 02/13/2025 10:37:18 Adult health examination 912426048 Z00.00 UTD, cologuard done in 2024- negative, will check PSA. Hyperlipidemia 49311434 E78.5 will recheck. Benign pro static hyperplasia 789116944 N40.1 Impaired f asting glycemia 933679962 R73.01 Obstructiv e sleep apnea syndrome 14809481 G47.33 sleep study confirmed but he has not tried CPAP, does not think he would wear mask. encouraged to consider alternate mask options and try CPAP Erectile dysfunction 860 076843 F52.21 refill provided. Needs infl uenza immunization 708309593 Z23 19 YEARS AND OLDER ONLY Bunion 549969509 M21.61 1 M21.[id number] Plata and was advised he needed prosthetic s, Dr Plaat does not provide service. Will refer to Dr. Lares for bilateral bunions. 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 work-notic ed difficulty grasping heavy objects-in office +phalen test, R>L-will further evaluate with EMG for suspicion of carpal tunnel Hearing difficulty 83698 0000 H91.93 70253559 saw audiology in 2019>was told he had bilateral hearing loss-pt would like to get re-examine d for possible hearing aids Family his tory of Multiple sclerosis 217022765 Z82.0 [id number] Health Concerns Section Related Observation LastModified by Organization Detai ls LastModified Time None Recorded Concern Status LastModified by Organization Details LastModified Time None Recorded Advance Directives Directive Y: HCP Payers Insurance Date Sequence Insurance Name Policy Number Policy Padilla Covered Member ID Padilla Member ID Guarantor Name 05/29/2014 1 [employer]ANCY [employer] ([facility]) [id number] Kaci Abraham [id number] Niles Abraham 02/13/2025 1 [facility] [id number] Niles Abraham [id number] Niles Abraham Notes Date Note Type Note Provider Name and Address Organization Details Recorded Time 05/17/2022 text/html ROS as noted in the HPI Here for visit today to discus numbness from his shoulder to his neck on the right for a few weeks, no injury. Had rotator cuff surgery years ago, 2017, Dr Clemens. No motor sx or radiculopathy into the hand. No chest pain or SOBHas a spine issue in the low back.Also has numbness on left face for several months from cheek to jaw, no motor weakness, feels on the surface only, like a light touch. No trouble with speech , chewing or dental issue. ANNE-MARIE 7 = 12 , PHQ 9 = 8, up from prior, depression is not new anxiety on and off. No SI or HISleeping affected, wakes up frequently , snores. Moni neumann, [facility] [place] 06/02/2022 12:46:19 08/24/2022 text/html Generic HPI TemplateReported by PatientPresents in f/u as above. Labs normal in Jun 15.Neck XR showed multilevel degeneration. Low back issues saw DR Guzman and decided not to have surgery. Not sleeping well but not taking trazodone regularly. due for sleep study Had appt in april, BP was better and he had lost a few lbs. Always rushing. Did cut coffee, still drinking alcohol, sometimes excessively. Not adding salt to foods, does eat out a good amount. - gets random thoracic back pain, happens randomly, can't move for 3-5 mins then resolves. Feels like a sharp pain feels spinal not muscular .ROS as noted in the HPI Here for visit today to discus numbness from his shoulder to his neck on the right for a few weeks, no injury. Had rotator cuff surgery years ago, 2017, Dr Clemens. No motor sx or radiculopathy into the hand. No chest pain or SOBHas a spine issue in the low back.Also has numbness on left face for several months from cheek to jaw, no motor weakness, feels on the surface only, like a light touch. No trouble with speech , chewing or dental issue. ANNE-MARIE 7 = 12 , PHQ 9 = 8, up from prior, depression is not new anxiety on and off. No SI or HISleeping affected, wakes up frequently, snores. Josue Sánchez, [facility] [address], [place], [address], [facility] 08/24/2022 10:22:20 02/08/2023 text/html Generic HPI TemplateReported by PatientPresents for PE. Lost 32lb since last visit. Using omnitrition. No alcohol, no breakfast, fruits, veggies, protein, no carbs, vitamins, water 1 gallon per day. Is walking daily. Has some work related stress, work, home life, college. He does have sleep apnea per sleep study, has f/u appt in february, he does not have cpap yet. Josue Sánchez [facility] [address], [place], [address], [facility] [place] 02/08/2023 10:16:43 02/13/2024 text/html Generic HPI TemplateReported by PatientPresents for PE. Has some work related stress- work, [...] and ashwaghanda. Overeats at night- snacking- boredom. RODNEY Iverson [address] [address], [place], [address], [facility] [place] 02/13/2024 12:00:22 02/13/2025 text/html ROS as noted in the [...] Overeats at night- snacking- boredom. KIKE CRAIG [address] [address], [place], [address], [facility] [place] 02/13/2025 11:10:55
== END 2025-03-17 10:08 | disposition home or self-care (01) ==
LOC: HO.NEURO 10:07
PROVIDERS: PCP Student in an Organized Health Care Education/Training Program; Visit Provider Student in an Organized Health Care Education/Training Program
DX: M25.531 Pain in right wrist (principal); M25.532 Pain in left wrist; G56.11 Other lesions of median nerve, right upper limb
CPT/HCPCS: 95886; 95911

== ENCOUNTER → 2025-03-17 10:12 | Outpatient (BNV) | payer OTHER, SELFPAY | PROVIDERS: PCP Student in an Organized Health Care Education/Training Program; Visit Provider Psychiatry & Neurology Neurology | DX: G56.03 Carpal tunnel syndrome, bilateral upper limbs (principal) | CPT/HCPCS: 95886; 95911 ==